=== PATIENT | female | born 1945 | race Caucasian/White ===

== ENCOUNTER → 2018-12-15 08:43 | Emergency (ER) | payer MEDICARE, OTHER ==
[2018-12-15 09:46] LABS: Hematocrit 30 % (33-41); Hemoglobin 10.2 g/dL (12.0-16.0); Mean Corpuscular HGB Conc 34 g/dL (31-36); Mean Corpuscular Hemoglobin 36 pg (27-31); Mean Corpuscular Volume 105 fL (80-97); Mean Platelet Volume 9.4 fL (7.4-10.4); Platelet Count 89 10^3/uL (150-450); Red Blood Count 2.87 10^6 /uL (3.70-4.87); Red Cell Distribution Width 16 % (10.5-15); White Blood Count 3.2 10^3/uL (3.5-10.8)
[2018-12-15 10:06] LABS: Urine Appearance Cloudy; Urine Bacteria 1+ (Absent); Urine Bilirubin Negative (Negative); Urine Blood Negative (Negative); Urine Color Amber; Urine Glucose Negative (Negative); Urine Ketones Trace (Negative); Urine Nitrite Negative (Negative); Urine Protein Negative (Negative); Urine Red Blood Cell 1+(3-5/hpf) (Absent); Urine Specific Gravity 1.015 (1.010-1.030); Urine Squamous Epithelial Cell Present (Absent); Urine Urobilinogen Negative (Negative); Urine White Blood Cell 3+(>20/hpf) (Absent)
[2018-12-15 10:07] LABS: ALT < 3 U/L (7-52); AST 14 U/L (13-39); Albumin 3.3 g/dL (3.2-5.2); Albumin/Globulin Ratio 1.4 (1-3); Alkaline Phosphatase 100 U/L (34-104); Anion Gap 6 mmol/L (2-11); BUN/Creatinine Ratio 24.1 (8-20); Blood Urea Nitrogen 19 mg/dL (6-24); CO2 Carbon Dioxide 28 mmol/L (22-32); Calcium 9.9 mg/dL (8.6-10.3); Chloride 103 mmol/L (101-111); EGFR African American 86.6 (>60); EGFR Non-African American 71.5 (>60); Globulin 2.4 g/dL (2-4); Glucose 119 mg/dL (70-100); Sodium 137 mmol/L (135-145); Total Protein 5.7 g/dL (6.4-8.9)
--- NOTE | 2018-12-15 10:10 | ED ---
Lower Extremity - HPI Summary HPI Summary: Patient is a 73-year-old female who presents emergency Department from [facility] for evaluation after fall. Caregiver states that patient fell out of bed complaining of hip and knee pain. Patient has a history of dementia and Parkinson's disease. Family present states patient is a bit more confused than usual. No associated symptoms of fever, chills, chest pain, shortness of breath , headache, abdominal pain, vomiting, diarrhea, urinary symptoms. Symptoms are moderate in severity. No current modifying factors. - History of Current Complaint Chief Complaint: EDExtremityLower Stated Complaint: FALL PER EMS Time Seen by Provider: 12/15/18 08:59 Hx Obtained From: Patient, EMS Pain Intensity: 5 - Allergies/Home Medications Allergies/Adverse Reactions: Allergies Allergy/AdvReac Type Severity Reaction Status Date / Time amoxicillin [From Augmentin] Allergy Unknown Verified 12/15/18 10:10 Reaction Details clavulanic acid Allergy Unknown Verified 12/15/18 10:10 [From Augmentin] Reaction Details morphine Allergy Hives Verified 12/15/18 10:10 Home Medications: Home Medications Lactulose 480 ML BTL*STOCK USE 20 gm PO DAILY 12/15/18 [History Confirmed ] Nystatin CREAM* [Nystatin Cream*] 1 applic TOPICAL DAILY 12/15/18 [History Confirmed 12/15/18] PMH/Surg Hx/FS Hx/Imm Hx Previously Healthy: Yes Endocrine/Hematology History: Reports: Hx Diabetes - NIDDM, Hx Thyroid Disease - Parathyroidectomy, Hx Anemia Cardiovascular History: Reports: Hx Congestive Heart Failure, Hx Hypertension Denies: Hx Pacemaker/ICD Respiratory History: Reports: Hx Pneumonia, Hx Sleep Apnea, Other Respiratory Problems/Disorders - HX OF thorocentisis Denies: Hx Asthma, Hx Chronic Obstructive Pulmonary Disease (COPD) GI History: Reports: Hx Cirrhosis - PRIMARY, Hx Diverticulosis, Hx Gall Bladder Disease - cholecystectomy, Hx Gastroesophageal Reflux Disease, Other GI Disorders - pelvic pain 3 months Denies: Hx Ulcer Comment Only: Hx Hiatal Hernia - Possibly History: Reports: Hx Kidney Stones, Hx Renal Disease - stones resolved, Other Problems/Disorders - incontinence LEAKAGE ONLY Musculoskeletal History: Reports: Hx Arthritis - OSTEO, Hx Rheumatoid Arthritis , Hx Back Problems Denies: Hx Osteoporosis, Hx Scoliosis Sensory History: Reports: Hx Cataracts - LEFT Denies: Hx Contacts or Glasses, Hx Hearing Aid Opthamlomology History: Reports: Hx Cataracts - LEFT Denies: Hx Contacts or Glasses Neurological History: Reports: Hx Dementia, Hx Headaches, Hx Nerve Disease - PARKINSONS, Other Neuro Impairments/Disorders Psychiatric History: Reports: Hx Anxiety, Hx Depression Denies: Hx Panic Disorder - Cancer History Hx Chemotherapy: No Hx Radiation Therapy: No - Surgical History Surgery Procedure, Year, and Place: Hysterectomy. UPPER LID BLEPHAROPLASTY 2010 [facility] [place]. Gall Bladder. Parathyroidectomy Hx Anesthesia Reactions: No - Immunization History Date of Tetanus Vaccine: Unk Date of Influenza Vaccine: Fall 2013 Infectious Disease History: No Infectious Disease History: Denies: Hx Clostridium Difficile, Hx Hepatitis, Hx Human Immunodeficiency Virus (HIV), Hx of Known/Suspected MRSA, Hx Shingles, Hx Tuberculosis, Traveled Outside the US in Last 30 Days - Family History Known Family History: Positive: Non-Contributory - Social History Occupation: Retired Lives: At [facility] Alcohol Use: None Hx Substance Use: No Substance Use Type: Reports: None Hx Tobacco Use: No Smoking Status (MU): Never Smoked Tobacco Review of Systems Negative: Fever, Chills Eyes: Negative ENT: Negative Cardiovascular: Negative Negative: Chest Pain Respiratory: Negative Negative: Shortness Of Breath, Cough Gastrointestinal: Negative Negative: Abdominal Pain, Vomiting, Diarrhea Genitourinary: Negative Negative: dysuria Positive: Other - left hip and bilateral knee pain Skin: Negative Neurological: Other - slight increased confusion. Negative: Headache, Weakness, Paresthesia, Numbness All Other Systems Reviewed And Are Negative: Yes Physical Exam Triage Information Reviewed: Yes Vital Signs On Initial Exam: Initial Vitals Temp Pulse Resp BP Pulse Ox 98.2 F 81 18 140/60 97 12/15/18 08:53 12/15/18 08:53 12/15/18 08:53 12/15/18 08:53 12/15/18 08:53 Vital Signs Reviewed: Yes Appearance: Positive: Well-Appearing - Pt. sitting up in bed in NAD. Confused at times. Skin: Positive: Warm, Dry Head/Face: Positive: Normal Head/Face Inspection Eyes: Positive: Normal, EOMI Neck: Positive: Supple, Nontender Respiratory/Lung Sounds: Positive: Clear to Auscultation, Breath Sounds Present Cardiovascular: Positive: Normal, RRR Abdomen Description: Positive: Nontender, Soft Musculoskeletal: Positive: Other - Pain on palpation to bilateral knees. No pain with pelvic rock. No wounds or signs or trauam on exam. Mild pain on palpation to proximal right humerus. Neurological: Positive: Normal, CN Intact II-III Psychiatric: Positive: Affect/Mood Appropriate Diagnostics - Vital Signs Vital Signs Temp Pulse Resp BP Pulse Ox 12/15/18 08:53 98.2 F 81 18 140/60 97 - Laboratory Lab Results: Lab Results 12/15/18 12/15/18 12/15/18 Range/Units 09:26 09:37 09:37 WBC 3.2 L (3.5-10.8) 10^3/uL RBC 2.87 L (3.70-4.87) 10^6 /uL Hgb 10.2 L (12.0-16.0) g/dL Hct 30 L (33-41) % MCV 105 H (80-97) fL MCH 36 H (27-31) pg MCHC 34 (31-36) g/dL RDW 16 H (10.5-15) % Plt Count 89 L (150-450) 10^3/uL MPV 9.4 (7.4-10.4) fL Neut % (Auto) Pending Lymph % (Auto) Pending [place] % (Auto) Pending Eos % (Auto) Pending Baso % (Auto) Pending Absolute Neuts (auto) Pending Absolute Lymphs (auto) Pending Absolute Monos (auto) Pending Absolute Eos (auto) Pending Absolute Basos (auto) Pending Absolute Nucleated RBC Pending Nucleated RBC % Pending Sodium 137 (135-145) mmol/L Potassium 4.0 (3.5-5.0) mmol/L Chloride 103 (101-111) mmol/L Carbon Dioxide 28 (22-32) mmol/L Anion Gap 6 (2-11) mmol/L BUN 19 (6-24) mg/dL Creatinine 0.79 (0.51-0.95) mg/dL Est GFR ( Amer) 86.6 (>60) Est GFR (Non-Af Amer) 71.5 (>60) BUN/Creatinine Ratio 24.1 H (8-20) Glucose 119 H (70-100) mg/dL Calcium 9.9 (8.6-10.3) mg/dL Total Bilirubin 2.10 H (0.2-1.0) mg/dL AST 14 (13-39) U/L ALT < 3 L (7-52) U/L Alkaline Phosphatase 100 (34-104) U/L Total Protein 5.7 L (6.4-8.9) g/dL Albumin 3.3 (3.2-5.2) g/dL Globulin 2.4 (2-4) g/dL Albumin/Globulin Ratio 1.4 (1-3) Urine Color [place] Urine Appearance Cloudy Urine pH 6.0 (5-9) Ur Specific [place] 1.015 (1.010-1.030) Urine Protein Negative (Negative) Urine Ketones Trace A (Negative) Urine Blood Negative (Negative) Urine Nitrate Negative (Negative) Urine Bilirubin Negative (Negative) Urine Urobilinogen Negative (Negative) Ur Leukocyte Esterase 3+ A (Negative) Urine WBC (Auto) 3+(>20/hpf) A (Absent) Urine RBC (Auto) 1+(3-5/hpf) A (Absent) Ur Squamous Epith Cells Present A (Absent) Urine Bacteria 1+ A (Absent) Urine Glucose Negative (Negative) Result Diagrams: 12/15/18 09:37 12/15/18 09:37 Lab Statement: Any lab studies that have been ordered have been reviewed, and results considered in the medical decision making process. Lower Extremity Course/Dx - Course Course Of Treatment: Pt. presenting for evaluation after falling from bed. VS stable. Afebrile. Confused at baseline. Imaging is negative for acute findings per radiology. Labs show chronic pancytopenia. ECG nonacute. U/A suggestive of UTI. On re-exam pt.'s family is now present. Results discussed. Pt. [facility]. WIll start on cipro based on prior cultures. To f.u with PCP. To return to ER if sxs change or worsen. Family understands and agrees with plan. - Diagnoses Differential Diagnosis/HQI/PQRI: Positive: Dislocation, Fracture (Closed), Sprain, Strain Provider Diagnoses: Fall, UTI (urinary tract infection), Knee contusion Discharge - Sign-Out/Discharge Documenting (check all that apply): Patient Departure Patient Received Moderate/Deep Sedation with Procedure: No - Discharge Plan Condition: Good Disposition: HOME Prescriptions: Ciprofloxacin TAB* [Cipro 500 MG TAB*] 500 mg PO BID #14 tab Patient Education Materials: Urinary Tract Infection in Women (ED), Fall Prevention (ED) Referrals: Jared Cisneros MD [Primary Care Provider] - Additional Instructions: Schedule follow up with PCP in 2-3 days Take antibiotic as directed Return to ER if symptoms change or worsen - Billing Disposition and Condition Condition: GOOD Disposition: Home
[2018-12-15 10:14] LABS: ABS Basophils 0 10^3/ul (0-0.2); ABS Eosinophils 0.1 10^3/ul (0-0.6); ABS Lymphocytes 0.5 10^3/ul (1.0-4.8); ABS Monocytes 0.3 10^3/ul (0-0.8); ABS Neutrophils 2.3 10^3/ul (1.5-7.7); ABS Nucleated RBC 0 10^3/ul; Eosinophil % 3.8 %; Lymphocyte % 14.6 %; Nucleated Red Blood Cells % 0
[2018-12-15 12:17] VITALS: BP 134/63
== END | disposition home or self-care (01) ==
LOC: ED 08:43
DX: S80.00XA Contusion of unspecified knee, initial encounter (principal); M25.562 Pain in left knee; M25.561 Pain in right knee; N39.0 Urinary tract infection, site not specified; W19.XXXA Unspecified fall, initial encounter; Y92.9 Unspecified place or not applicable; E11.9 Type 2 diabetes mellitus without complications; I10 Essential (primary) hypertension
CPT/HCPCS: 36415; 70450; 71045; 80053; 81003; 81015; 85025; 87086; 93005; 99283

== ENCOUNTER 2019-01-23 15:30 | Emergency (ER) | payer MEDICARE, OTHER ==
[2019-01-23] MEDS ORDERED: Lidocaine PATCH 5%* 1 PATCH TRANSDERM ONE (15:47)
[2019-01-23] MEDS ORDERED: HYDROcodone/ACETAMIN 5-325 MG* 1 TAB PO ONE (15:47)
[2019-01-23] MEDS ORDERED: Ketorolac INJ* 60 MG/2 ML VIAL IM ONE (15:47)
[2019-01-23] MEDS ORDERED: Albuterol/Ipratropium NEB.SOL* Albuterol 2.5 MG/Ipratropium 0.5 MG 3 ML INH ONE (15:48)
--- NOTE | 2019-01-23 15:51 | ED ---
Back Pain - HPI Summary HPI Summary: This patient is a 73 year old female brought in by ambulance to [facility] with a chief complaint of right shoulder and back pain since 2 hours ago. Patient states that she has had right sided shoulder pain and back pain for the past few weeks. Today, patient stumbled out of bed and suffered a fall onto her right side, causing more pain. Patient states that pain is located in her midback, where her ribs are. The pain is rated 8/10 in severity. Symptoms aggravated by movement. Symptoms alleviated by nothing. Patient additionally reports SOB. - History of Current Complaint Stated Complaint: FALL PER EMS Time Seen by Provider: 01/23/19 15:39 Hx Obtained From: Patient Onset/Duration: Lasting Hours, Still Present Onset/Duration: Still Present Timing: Constant Back Pain Location: Is Discrete @ - mid back, near ribs Severity Currently: Severe Pain Intensity: 8 Pain Scale Used: 0-10 Numeric Aggravating Symptom(s): Movement Alleviating Symptom(s): Nothing Associated Signs And Symptoms: Positive: Other - shoulder pain, SOB. Negative: Fever - Allergies/Home Medications Allergies/Adverse Reactions: Allergies Allergy/AdvReac Type Severity Reaction Status Date / Time amoxicillin [From Augmentin] Allergy Unknown Verified 12/15/18 10:10 Reaction Details clavulanic acid Allergy Unknown Verified 12/15/18 10:10 [From Augmentin] Reaction Details morphine Allergy Hives Verified 12/15/18 10:10 PMH/Surg Hx/FS Hx/Imm Hx Previously Healthy: No Endocrine/Hematology History: Reports: Hx Diabetes - NIDDM, Hx Thyroid Disease - Parathyroidectomy, Hx Anemia Cardiovascular History: Reports: Hx Congestive Heart Failure, Hx Hypertension Denies: Hx Pacemaker/ICD Respiratory History: Reports: Hx Pneumonia, Hx Sleep Apnea, Other Respiratory Problems/Disorders - HX OF thorocentisis Denies: Hx Asthma, Hx Chronic Obstructive Pulmonary Disease (COPD) GI History: Reports: Hx Cirrhosis - PRIMARY, Hx Diverticulosis, Hx Gall Bladder Disease - cholecystectomy, Hx Gastroesophageal Reflux Disease, Other GI Disorders - pelvic pain 3 months Denies: Hx Ulcer Comment Only: Hx Hiatal Hernia - Possibly History: Reports: Hx Kidney Stones, Hx Renal Disease - stones resolved, Other Problems/Disorders - incontinence LEAKAGE ONLY Musculoskeletal History: Reports: Hx Arthritis - OSTEO, Hx Rheumatoid Arthritis , Hx Back Problems Denies: Hx Osteoporosis, Hx Scoliosis Sensory History: Reports: Hx Cataracts - LEFT Denies: Hx Contacts or Glasses, Hx Hearing Aid Opthamlomology History: Reports: Hx Cataracts - LEFT Denies: Hx Contacts or Glasses Neurological History: Reports: Hx Dementia, Hx Headaches, Hx Nerve Disease - PARKINSONS, Other Neuro Impairments/Disorders Psychiatric History: Reports: Hx Anxiety, Hx Depression Denies: Hx Panic Disorder - Cancer History Hx Chemotherapy: No Hx Radiation Therapy: No - Surgical History Surgery Procedure, Year, and Place: Hysterectomy. UPPER LID BLEPHAROPLASTY [address] [facility] [place]. Gall Bladder. Parathyroidectomy Hx Anesthesia Reactions: No - Immunization History Date of Tetanus Vaccine: Unk Date of Influenza Vaccine: Fall 2013 Infectious Disease History: Denies: Hx Clostridium Difficile, Hx Hepatitis, Hx Human Immunodeficiency Virus (HIV), Hx of Known/Suspected MRSA, Hx Shingles, Hx Tuberculosis - Family History Known Family History: Positive: Non-Contributory - Social History Alcohol Use: None Hx Substance Use: No Substance Use Type: Reports: None Hx Tobacco Use: No Smoking Status (MU): Never Smoked Tobacco Review of Systems Negative: Fever Positive: Shortness Of Breath Positive: Other - shoulder pain, back pain All Other Systems Reviewed And Are Negative: Yes Physical Exam - Summary Physical Exam Summary: Appearance: well appearing, no pain distress Skin: warm, dry, reflects adequate perfusion Head/face: normal Eyes: EOMI, MATT ENT: mucous membranes moist Neck: supple, non-tender Respiratory: Mild expiratory wheeze, Minor coarseness in bases Cardiovascular: RRR, pulses symmetrical Abdomen: Protuberant, distended abd Bowel Sounds: present Musculoskeletal: Left thoracic and rib pain, 2+ bilateral lower extremity edema Neuro: normal, sensory motor intact, A&Ox3 Triage Information Reviewed: Yes Vital Signs Reviewed: Yes Diagnostics - Laboratory Lab Statement: Any lab studies that have been ordered have been reviewed, and results considered in the medical decision making process. - Radiology CXR Radiology Interpretation Completed By: Radiologist Summary of Radiographic Findings: CXR reveals, per radiologist, IMPRESSION: LINEAR ATELECTASIS OF THE LEFT LUNG BASE, WITH A SMALL LEFT PLEURAL EFFUSION. ED physician has reviewed this radiology report. - CT CT T-Spine CT Interpretation Completed By: Radiologist Summary of CT Findings: CT T-Spine reveals, per radiologist, IMPRESSION: OSTEOPENIA. DEGENERATIVE DISC DISEASE. ED physician has reviewed this radiology report. Re-Evaluation - Re-Evaluation First Eval Re-Evaluation Time: 17:29 Change: Improved Comment: Patient states pain is improving. Back Pain Course/Dx - Course Course Of Treatment: Patient with chronic back pain from falls in the past presents with exacerbation after fall. No injury to the head. Alert and oriented despite her dementia. She is DNR/DNR and comfort care measures. She was treated with Lidoderm patch, Toradol and pain pill as well as a phenyl patch placed before discharge. X-rays are negative. Follow up with primary care physician. Suggestion for patient to be made palliative or hospice was made. - Diagnoses Differential Diagnosis/HQI/PQRI: Positive: Fracture, Strain, Sprain Provider Diagnoses: Fall, Thoracic back pain Discharge - Sign-Out/Discharge Documenting (check all that apply): Patient Departure Patient Received Moderate/Deep Sedation with Procedure: No - Discharge Plan Condition: Improved Disposition: [facility] Prescriptions: Lidocaine PATCH 5%* [Lidoderm 5% Patch*] 1 patch TRANSDERM DAILY #1 packet Patient Education Materials: Back Pain (ED), Fall Prevention (ED) Referrals: Jared Cisneros MD [Primary Care Provider] - Additional Instructions: Follow-up with the group home physician on Friday. Return with difficulty breathing, uncontrolled pain, worse or other concerns. Consider palliative care or hospice care. - Billing Disposition and Condition Condition: IMPROVED Disposition: Care Home Facility - Attestation Statements Document Initiated by Timmy: Yes Documenting Scribe: Gianni Hendrickson Provider For Whom Timmy is Documenting (Include Credential): Zechariah Sherman MD Scribe Attestation: Gianni Jacob scribed for Zechariah Sherman MD on 01/23/19 at 1837. Scribe Documentation Reviewed: Yes Provider Attestation: The documentation as recorded by the Gianni malone accurately reflects the service I personally performed and the decisions made by , Zechariah Sherman MD Status of Scribe Document: Viewed
[2019-01-23] MEDS ORDERED: fentaNYL PATCH 12 MCG/HR TRANSDERM ONE (17:40)
[2019-01-23 18:09] VITALS: BP 140/78
[2019-01-23] MEDS ORDERED: Lidocaine Patch REMOVE* 1 NOTE MISC SCH (21:00)
== END 2019-01-23 21:05 ==
LOC: ED 15:30
DX: M54.6 Pain in thoracic spine (principal); M85.88 Other specified disorders of bone density and structure, other site; M51.34 Other intervertebral disc degeneration, thoracic region; J98.11 Atelectasis; J90 Pleural effusion, not elsewhere classified; I50.9 Heart failure, unspecified; I11.0 Hypertensive heart disease with heart failure; K74.60 Unspecified cirrhosis of liver; E11.9 Type 2 diabetes mellitus without complications; D64.9 Anemia, unspecified; K21.9 Gastro-esophageal reflux disease without esophagitis; M19.90 Unspecified osteoarthritis, unspecified site; M06.9 Rheumatoid arthritis, unspecified; G20 Parkinson's disease; Z88.3 Allergy status to other anti-infective agents; Z88.5 Allergy status to narcotic agent
CPT/HCPCS: 71046; 72070; 96372; 99284; A9270-GY; J1885

== ENCOUNTER 2019-01-25 15:13 | Inpatient (IN) | payer MEDICARE, OTHER ==
--- NOTE | 2019-01-25 15:53 | ED ---
Shortness of Breath - HPI Summary HPI Summary: Pt is a 73 y/o F presenting to the ED with a chief complaint of shortness of breath onset this morning. The pts daughter was sitting with her keeping her company when she noticed her temperature increase more than usual, with associated sudden weakness and SOB. The pts daughter states she is not coughing d/t pain when coughing. She states the pt does not usually breathe with her mouth open, and that the pt fell on 01/23, which is causing back pain. The pt notes some burning with urination d/t recent UTI dx. In summary, the pt reports SOB with wheezes, fever, weakness, burning with urination, edema, and back pain. Pt denies any chills, erythema of eyes, sore throat, CP, cough, abdominal pain, N/V, dysuria, hematuria, rash, or dizziness. She has hx of dementia, CHF, chronic bronchitis, Parkinsons, and cirrhosis. - History of Current Complaint Chief Complaint: EDShortnessOfBreath Time Seen by Provider: 01/25/19 15:22 Hx Obtained From: Patient, Family/Cloth Sponger Hx From Patient Unobtainable Due To: Dementia Onset/Duration: Sudden Onset, Lasting Hours, Still Present Timing: Constant Current Severity: Moderate Dyspnea At: Rest Aggrevating Factors: Nothing Alleviating Factors: Nothing Associated Signs & Symptoms: Wheezing, Fever, Edema - Allergy/Home Medications Allergies/Adverse Reactions: Allergies Allergy/AdvReac Type Severity Reaction Status Date / Time amoxicillin [From Augmentin] Allergy Unknown Verified 12/15/18 10:10 Reaction Details clavulanic acid Allergy Unknown Verified 12/15/18 10:10 [From Augmentin] Reaction Details morphine Allergy Hives Verified 12/15/18 10:10 PMH/Surg Hx/FS Hx/Imm Hx Previously Healthy: No Endocrine/Hematology History: Reports: Hx Diabetes - NIDDM, Hx Thyroid Disease - Parathyroidectomy, Hx Anemia Cardiovascular History: Reports: Hx Congestive Heart Failure, Hx Hypertension Denies: Hx Pacemaker/ICD Respiratory History: Reports: Hx Chronic Bronchitis, Hx Pneumonia, Hx Sleep Apnea, Other Respiratory Problems/Disorders - HX OF thorocentisis Denies: Hx Asthma, Hx Chronic Obstructive Pulmonary Disease (COPD) GI History: Reports: Hx Cirrhosis - PRIMARY, Hx Diverticulosis, Hx Gall Bladder Disease - cholecystectomy, Hx Gastroesophageal Reflux Disease, Other GI Disorders - pelvic pain 3 months Denies: Hx Ulcer Comment Only: Hx Hiatal Hernia - Possibly History: Reports: Hx Kidney Stones, Hx Renal Disease - stones resolved, Other Problems/Disorders - incontinence LEAKAGE ONLY Musculoskeletal History: Reports: Hx Arthritis - OSTEO, Hx Rheumatoid Arthritis , Hx Back Problems Denies: Hx Osteoporosis, Hx Scoliosis Sensory History: Reports: Hx Cataracts - LEFT Denies: Hx Contacts or Glasses, Hx Hearing Aid Opthamlomology History: Reports: Hx Cataracts - LEFT Denies: Hx Contacts or Glasses Neurological History: Reports: Hx Dementia, Hx Headaches, Hx Nerve Disease - PARKINSONS, Other Neuro Impairments/Disorders Psychiatric History: Reports: Hx Anxiety, Hx Depression Denies: Hx Panic Disorder - Cancer History Hx Chemotherapy: No Hx Radiation Therapy: No - Surgical History Surgery Procedure, Year, and Place: Hysterectomy. [place]OP[place] [facility] [place] Bladder. Parathyroidectomy Hx Anesthesia Reactions: No - Immunization History Date of Tetanus Vaccine: Unk Date of Influenza Vaccine: Fall 2013 Infectious Disease History: No Infectious Disease History: Denies: Hx Clostridium Difficile, Hx Hepatitis, Hx Human Immunodeficiency Virus (HIV), Hx of Known/Suspected MRSA, Hx Shingles, Hx Tuberculosis, Traveled Outside the [place] in Last 30 Days - Family History Known Family History: Negative: Renal Disease - Social History Alcohol Use: None Hx Substance Use: No Substance Use Type: Reports: None Hx Tobacco Use: No Smoking Status (MU): Never Smoked Tobacco Review of Systems Positive: Fever. Negative: Chills Negative: Erythema Negative: Sore Throat Negative: Chest Pain Positive: Shortness Of Breath - w/ wheezes. Negative: Cough Negative: Abdominal Pain, Vomiting, Nausea Positive: burning. Negative: dysuria, hematuria Positive: Myalgia, Edema Negative: Rash Neurological: Negative - dizziness Positive: Weakness All Other Systems Reviewed And Are Negative: Yes Physical Exam - Summary Physical Exam Summary: Constitutional: Well-developed, Well-nourished, somnolent. (-) Distressed Skin: Warm, Dry HENT: Normocephalic; Atraumatic Eyes: Conjunctiva normal Neck: Musculoskeletal ROM normal neck. (-) JVD, (-) Stridor, (-) Tracheal deviation Cardio: Rhythm regular, rate normal, Heart sounds normal; Intact distal pulses; The pedal pulses are 2+ and symmetric. Radial pulses are 2+ and symmetric. (-) Murmur Pulmonary/Chest wall: Effort normal. (-) Respiratory distress, (+) Crackles, (+ ) Wheezes, (-) Rales Abd: Soft, (-) tenderness, (-) Distension, (-) Guarding, (-) Rebound Musculoskeletal: (-) Edema Lymph: (-) Cervical adenopathy Neuro: Alert, Oriented x3 Psych: Mood and affect Normal Triage Information Reviewed: Yes Vital Signs On Initial Exam: Initial Vitals Temp Pulse Resp BP Pulse Ox 98.5 F 105 25 140/83 98 01/25/19 15:17 01/25/19 15:17 01/25/19 15:17 01/25/19 15:17 01/25/19 15:17 Vital Signs Reviewed: Yes Diagnostics - Vital Signs Vital Signs Temp Pulse Resp BP Pulse Ox 01/25/19 15:17 98.5 F 105 25 140/83 98 - Laboratory Result Diagrams: 01/25/19 16:16 01/25/19 16:16 Lab Statement: Any lab studies that have been ordered have been reviewed, and results considered in the medical decision making process. - Radiology CXR Radiology Interpretation Completed By: Radiologist Summary of Radiographic Findings: 1. LEFT BASILAR ATELECTASIS VERSUS CONSOLIDATION WITH A SMALL LEFT PLEURAL EFFUSION. 2. PULMONARY VASCULAR CONGESTION. ED physician has reviewed this report. - EKG 1531 Cardiac Rate: Tachycardia - 107bpm - sinus or ectopic atrial ST Segment: Normal Ectopy: None Summary of EKG Findings: EKG at 1531 shows sinus or ectopic atrial tachycardia at 107bpm, borderline T-wave abnormalities, and no STEMI. Re-Evaluation - Re-Evaluation 1st re-eval Re-Evaluation Time: 17:21 Change: Unchanged Comment: Pt's family reports she uses oxygen PRN at home. Course/Dx - Course Course Of Treatment: Pt is a 73 y/o F presenting to the ED with a chief complaint of shortness of breath onset this morning. The pt reports SOB with wheezes, fever, weakness, burning with urination, edema, and back pain d/t recent fall. Pt denies any chills, erythema of eyes, sore throat, CP, cough, abdominal pain, N/V, dysuria, hematuria, rash, or dizziness. She has hx of dementia, CHF, chronic bronchitis, Parkinsons, and cirrhosis. Upon exam, the pt has wheezes and crackles in her bilateral lungs, and appears somnolent at bedside. EKG at 1531 shows sinus or ectopic atrial tachycardia at 107bpm, borderline T-wave abnormalities, and no STEMI. CXR shows: 1. LEFT BASILAR ATELECTASIS VERSUS CONSOLIDATION WITH A SMALL LEFT PLEURAL EFFUSION. 2. PULMONARY VASCULAR CONGESTION. Pt's INR is 1.44, and her APTT is 36.6. She also has a RBC of 2.56, Hgb of 8.9, Hcct of 27, MCV of 104, MCH of 35, and a plt count of 80. Her first troponin is 0.06, and her BNP is 249. Pt appears to have L-sided infiltrate with pleural effusion. D/t her hx of CHF and chronic bronchitis, I suspect her tachycardia and tachypnea is related to PNA. I do not believe the pt is septic, her WBC and lactic acid are nml. It would be dangerous to administer IV fluids in large volume bolus to her. She appears somnolent, possibly from her Fentanyl patch. The pt [place] [facility] [place] dx including PNA and medication adverse effect. I spoke with Dr. Sin at 1725 about the pt's condition who will be accepting the [place] [facility] [place] - Diagnoses Provider Diagnoses: PNA (pneumonia), Medication adverse effect Discharge - Sign-Out/Discharge Documenting (check all that apply): Patient Departure - Discharge Plan Condition: Stable Disposition: ADMITTED TO [facility] Referrals: Arthur Murphy MD [Primary Care Provider] - - Attestation Statements Document Initiated by Scribe: Yes Documenting Scribe: Jyoti Stephen Provider For Whom Timmy is Documenting (Include Credential): Yakov Bello MD. Scribe Attestation: IJyoti, scribed for Yakov Bello MD. on 01/25/19 at 1730. Status of Scribe Document: Ready Consult Consult: 1725 - I spoke with Dr. Sin who will be accepting the pt [place] [facility] [place]
[2019-01-25 16:35] LABS: Activated Partial Thrombo Time 36.6 seconds (26.0-36.3); INR 1.44 (0.82-1.09)
[2019-01-25 16:38] LABS: ABS Basophils 0 10^3/ul (0-0.2); ABS Eosinophils 0.1 10^3/ul (0-0.6); ABS Lymphocytes 0.3 10^3/ul (1.0-4.8); ABS Monocytes 0.7 10^3/ul (0-0.8); ABS Neutrophils 4.5 10^3/ul (1.5-7.7); ABS Nucleated RBC 0 10^3/ul; Eosinophil % 1.4 %; Hematocrit 27 % (33-41); Hemoglobin 8.9 g/dL (12.0-16.0); Lymphocyte % 5.8 %; Mean Corpuscular HGB Conc 34 g/dL (31-36); Mean Corpuscular Hemoglobin 35 pg (27-31); Mean Corpuscular Volume 104 fL (80-97); Mean Platelet Volume 10.2 fL (7.4-10.4); Nucleated Red Blood Cells % 0; Platelet Count 80 10^3/uL (150-450); Red Blood Count 2.56 10^6 /uL (3.70-4.87); Red Cell Distribution Width 16 % (10.5-15); White Blood Count 5.6 10^3/uL (3.5-10.8)
[2019-01-25 16:55] LABS: Troponin I 0.06 ng/mL (<0.04)
[2019-01-25 16:56] LABS: ALT 3 U/L (7-52); AST 20 U/L (13-39); Albumin 3.3 g/dL (3.2-5.2); Albumin/Globulin Ratio 1.3 (1-3); Alkaline Phosphatase 84 U/L (34-104); Anion Gap 5 mmol/L (2-11); BUN/Creatinine Ratio 26.4 (8-20); Blood Urea Nitrogen 23 mg/dL (6-24); CO2 Carbon Dioxide 27 mmol/L (22-32); Calcium 9.7 mg/dL (8.6-10.3); Chloride 106 mmol/L (101-111); EGFR African American 77.4 (>60); Globulin 2.6 g/dL (2-4); Glucose 133 mg/dL (70-100); Potassium 4.2 mmol/L (3.5-5.0); Sodium 138 mmol/L (135-145); Total Protein 5.9 g/dL (6.4-8.9)
[2019-01-25] MEDS ORDERED: Azithromycin 500 mg/250 ml NS 500 MG/250 ML BAG IVPB ONE (17:21)
[2019-01-25] MEDS ORDERED: cefTRIAXone(*) 1 GM in NS 0.9% 50 ML* 50 ML IVPB ONE (17:21)
[2019-01-25] MEDS ORDERED: Furosemide IV* 10 MG/ML VIAL (40 MG) IV SLOW PU ONE (17:26)
[2019-01-25 17:37] LABS: Urine Appearance Clear; Urine Bilirubin Negative (Negative); Urine Blood Negative (Negative); Urine Color Yellow; Urine Glucose Negative (Negative); Urine Ketones Negative (Negative); Urine Nitrite Negative (Negative); Urine Protein Negative (Negative); Urine Urobilinogen Negative (Negative)
[2019-01-25] MEDS ORDERED: Albuterol/Ipratropium NEB.SOL* Albuterol 2.5 MG/Ipratropium 0.5 MG 3 ML INH PRN (18:13)
[2019-01-25] MEDS ORDERED: Albuterol 2.5 MG/3 ML NEB.SOL* (0.083%) INH PRN (18:13)
[2019-01-25] MEDS ORDERED: Al Hydrox/Mg Hydrox/Simet LIQ* 30 ML UDC PO PRN (18:13)
[2019-01-25] MEDS ORDERED: Glycerin ADULT SUPP PR PRN (18:19)
[2019-01-25] MEDS ORDERED: Albuterol HFA INHALER* 8 gm MDI INH PRN (18:19)
[2019-01-25] MEDS ORDERED: Magnesium Hydroxide LIQ* 30 ML UDC PO PRN (18:19)
[2019-01-25] MEDS ORDERED: Calcium Carbonate CHEW TAB* 500 MG (TUMS) PO PRN (18:19)
[2019-01-25] MEDS ORDERED: Pantoprazole TAB * 40 MG TAB PO PRN (18:19)
[2019-01-25 18:20] LABS: % Iron Saturation 13 % (15-55); Iron 43 ug/dL (50-212); Total Iron Binding Capacity 344 mcg/dL (250-450); Transferrin 246 mg/dL (203-362)
[2019-01-25 18:42] LABS: Ferritin 106.2 ng/mL (11-307)
[2019-01-25 18:44] LABS: Influenza A Molecular NEGATIVE (Negative); Influenza B Molecular NEGATIVE (Negative)
[2019-01-25 18:45] LABS: Folate 3.73 ng/mL (>3.99)
[2019-01-25 20:07] LABS: Troponin I 0.05 ng/mL (<0.04)
[2019-01-25] MEDS: Acetaminophen TAB* 325 MG PO SCH (20:07)
[2019-01-25] MEDS: Carbidopa/Levodop 25/100 MG TAB(*) PO SCH (20:08)
[2019-01-25] MEDS: Heparin VIAL(*) 5000 UNITS/ML VIAL (FIVE THOUSAND) SUBCUT SCH (20:23)
[2019-01-25] MEDS: DULoxetine DR CAP* 20 MG CAP.DR PO SCH (21:06)
[2019-01-25] MEDS: Latanoprost 0.005%* 2.5 ml BTL BOTH EYES SCH (21:06)
[2019-01-25] MEDS: Lidocaine PATCH 5%* 1 PATCH TRANSDERM SCH (21:09)
--- NOTE | 2019-01-25 21:20 | HP ---
CC: Dr. Murphy * HISTORY AND PHYSICAL: DATE OF ADMISSION: 01/25/19 PRIMARY CARE PROVIDER: Dr. Murphy at [facility]. ATTENDING PHYSICIAN: Dr. Yulia Sin * (dictated by Ivette Arevalo NP). CHIEF COMPLAINT: 1. Shortness of breath. 2. Increased temperature. 3. Weakness. HISTORY OF PRESENT ILLNESS: Mrs. Brink is a 73-year-old female with a past medical history significant for dementia, CHF, chronic bronchitis, Parkinson's, cirrhosis, diabetes, hypothyroid, anemia, asthma, hypertension, hyperlipidemia who presented to the emergency department today on 01/25/19 with her daughter due to complaints of sudden shortness of breath, increase in temperature, weakness. While in the emergency department, patient also complained of wheezing, fever, burning with urination, edema, back pain. It should be mentioned the patient has had 2 other emergency department visits since November, both of which are for falls. While in the emergency department, patient had a chest x-ray, which revealed left basilar atelectasis versus consolidation with a small left pleural effusion and peripheral vascular congestion. She also had labs, which revealed macrocytic anemia and thrombocytopenia. She also had an elevated BNP at 249. Given patient's presentation and concern for fluid volume overload and possible community acquired pneumonia, the hospitalists were asked to evaluate for admission. PAST MEDICAL HISTORY: 1. Dementia. 2. CHF. 3. Chronic bronchitis. 4. Parkinson's. 5. Cirrhosis. 6. Diabetes. 7. Hypothyroid. 8. Anemia (iron deficiency). 9. Pancytopenia. 10. Depression. 11. GERD. 12. Fibromyalgia. PAST SURGICAL HISTORY: 1. Parathyroidectomy. HOME MEDICATIONS: 1. Two liters nasal cannula at baseline. 2. Zinc oxide 10% transdermal b.i.d. p.r.n. 3. Lidocaine 5% 1 patch transdermal daily. 4. Latanoprost 1 to both eyes at bedtime. 5. Lactulose 30 mg p.o. b.i.d. 6. DuoNeb 1 inhalation q.4 hours p.r.n. 7. Glycerin suppository 1 suppository NH daily p.r.n. 8. Glucagon emergency kit 1 mg injection once p.r.n. 9. Freeze It Relief Gel 113.4 g topical q.6 hours p.r.n. 10. Furosemide 80 mg p.o. q.a.m. 11. Enema, Weyxn-Yt-Vrm 133 mL NH daily p.r.n. 12. Cymbalta 40 mg p.o. at bedtime. 13. Carbidopa/levodopa 25 mg/100 mg 1.5 tabs p.o. 4 times daily. 14. Tums 500 mg p.o. q.4 hours p.r.n. 15. Tylenol Arthritis Pain 650 mg p.o. t.i.d. 16. Albuterol HFA 2 puff inhalation q.4 hours p.r.n. 17. Tramadol 50 mg p.o. q.6 hours p.r.n. 18. Spironolactone 25 mg p.o. daily. 19. Mylicon 80 mg p.o. q.4 hours p.r.n. 20. Saline nasal drops 1 both nares b.i.d. 21. Artificial Tear eye drops 1 drop both eyes t.i.d. 22. Omeprazole 20 mg p.o. daily p.r.n. 23. Mirabegron 50 mg p.o. daily. 24. Milk of Magnesia 30 mL p.o. q.72 hours p.r.n. 25. Magnesium oxide 40 mg p.o. q.a.m. 26. Losartan 50 mg p.o. daily. ALLERGIES: AMOXICILLIN, CLAVULANIC ACID, MORPHINE. FAMILY HISTORY: Patient's mother had coronary artery disease and CHF. Father has history of bladder cancer. Brother had liver cancer. SOCIAL HISTORY: Patient denies smoking. Patient denies alcohol use. Patient currently lives at [facility]. Patient is a DNR. Patient's surrogate decision maker is Glory Jerez, her daughter, at [phone]. REVIEW OF SYSTEMS: Constitutional: Patient reports elevated temperature as she normally runs 95 and is currently 98 to 99. No anorexia. No weight loss. Cardiac: No chest pain. Reports edema. Respiratory: No cough. No hemoptysis. She reports shortness of breath with wheeze. GI: No nausea, vomiting. No diarrhea. No abdominal pain. : No gross hematuria. Patient reports mild burning with urination. Neuro: No focal weakness or sensory loss. Reports generalized weakness. Eyes: No visual complaints. ENT: No sore throat. No nasal congestion. Musculoskeletal: Patient reports back pain and shoulder pain due to fall. Skin: No rashes or lesions. Psych: No psychosis or anxiety. PHYSICAL EXAMINATION GENERAL: Ms. Brink is a 73-year-old female who is mildly obese, lying on the ED stretcher. She appears in no acute distress. She appears stated age. VITAL SIGNS: Temp 99.2 rectally, HR 105, RR 23, O2 saturation 98% on 2 L, BP 129/76. HEENT: EOMs intact. PERRLA. Oral mucosa is moist without lesions. Posterior pharynx is clear. NECK: Full range of motion. No lymphadenopathy. RESPIRATORY: Symmetrical chest expansion. No accessory muscle use. The patient has crackles in the lower and mid lobes. No wheeze heard. CV: Regular rate and rhythm. S1, S2 present. Systolic murmur noted. No rubs or gallops. EXTREMITIES: Skin is warm and smooth bilaterally. Patient has +1 edema bilaterally. No clubbing or cyanosis. Pedal pulses are 2+ bilaterally. MUSCULOSKELETAL: Full range of motion. No pain or deformities. ABDOMEN: Soft, nontender to palpation. Bowel sounds are normoactive throughout. NEURO: Awake, alert, and oriented x4. Cranial nerves II through XII are grossly intact. Moves all extremities. Muscle strength is 5/5 in the upper and lower extremities. SKIN: Grossly intact. DIAGNOSTIC STUDIES/LAB DATA: WBC 5.6, hemoglobin 8.9, hematocrit 27, MCV 105, MCH 35, platelets 80. Sodium 138, potassium 4.2, chloride 106, carbon dioxide 27, BUN 23, creatinine 0.87, glucose 133, lactic 1.2, total bilirubin 2.40. Troponin 0.06, BNP 249. EKG: Impression: Sinus rhythm, no ST changes. Chest x-ray: Impression: Left basilar atelectasis versus consolidation versus mild left pleural effusion. No pulmonary vascular congestion. ASSESSMENT AND PLAN: Ms. Brink is a 73-year-old female with a past medical history significant for dementia, congestive heart failure, chronic bronchitis, Parkinson's, cirrhosis, diabetes, hypothyroid, anemia, pancytopenia who presented to the emergency department today with weakness, elevated temperature , and shortness of breath and was found to have a possible congestive heart failure exacerbation and possibly pneumonia. Patient will be admitted OBV. 1. Shortness of breath: As mentioned above, patient's chest x-ray shows consolidation versus atelectasis and pulmonary congestion. Therefore, patient will be treated for both congestive heart failure exacerbation given her edema and elevated BNP and she will be covered for community-acquired pneumonia with azithromycin and ceftriaxone given reported elevated temperature and shortness of breath. 2. Congestive heart failure exacerbation: This is an [id number] congestive heart failure exacerbation. I have ordered an echocardiogram as her last one was in 2014. In addition, patient has a significant systolic murmur. Patient received Lasix 40 mg IV push while in the emergency department. She is on 80 mg of p.o. Lasix at home. I will continue patient's 80 mg of p.o. Lasix daily as she takes at home. I suspect patient may need a second dose of IV Lasix tomorrow, but we will reassess at that time. I have also ordered daily weights and strict Is and Os. 3. Community-acquired pneumonia: There is concern for community-acquired pneumonia given patient's chest x-ray, shortness of breath, tachycardia, tachypnea, reported elevated temperature. Patient has been started on ceftriaxone and azithromycin while in the emergency room. I will continue these at this point. If her symptoms deteriorate, I would recommend covering for pseudomonas as patient lives at a long-term care facility. 4. Sepsis: Patient meets sepsis criteria given elevated heart rate, tachypnea , suspected source. As mentioned above, patient has been started on antibiotics. We have held off on IV fluid bolus given patient's congestive heart failure exacerbation. Patient has been pancultured. 5. Pancytopenia: As mentioned above, patient has a history of pancytopenia. Her labs are also consistent with this. All of her labs are near patient's baseline with the exception of her hemoglobin, which is 8.9 and her baseline is closer to 10, and hematocrit, which is 27 at her baseline is closer to 30. I suspect this is probably dilutional given patient's congestive heart failure exacerbation, but I have ordered iron studies, vitamin B12, folate, and stool. 4. Elevated troponin: Patient's troponin initially in the ED was 0.06. In addition, she has elevated BNP of 249. I suspect this elevation is due to demand ischemia given the patient's [id number]-ufgvbju congestive heart failure exacerbation. EKG was normal. Patient is asymptomatic. Either way, I will trend patient's troponins. 5. Dementia: I will continue patient's carbidopa/levodopa and provide supportive care. 6. Congestive heart failure: We will treat patient's congestive heart failure exacerbation with IV Lasix. We will continue patient's p.o. Lasix and her spironolactone. We will monitor her electrolytes. 7. Parkinson's: We will continue patient's home medications as same. 8. Cirrhosis: I will continue patient's diuretics. In addition, I have added on ammonia to be drawn. 9. Diabetes: It mentions in patient's history that she is a diabetic, although I do not see any diabetic medications on her regimen. I have ordered a hemoglobin A1c to be added on to her labs. 10. Hypothyroid: Once again, it appears patient carries a history of hypothyroidism, but I do not see any medications to suggest that she is being treated for this. I will add on a TSH. 11. Anemia (iron deficiency): As mentioned above, patient is pancytopenic, but her H and H is slightly lower than baseline. I suspect this is dilutional. Either way, I have ordered iron studies and a stool for guaiac. 12. Depression: We will continue patient's home medications as same. 13. Gastroesophageal reflux disease: We will continue patient's omeprazole. 14. FEN: Patient will be provided with a low-sodium diet. 15. Code status: Patient is a DNR and has a MOLST in the chart. 16. DVT prophylaxis: Based on DVT Risk Assessment, patient is high risk. I will order subcu heparin. TIME SPENT: Approximately 65 minutes were spent on this admission, greater than half the time was spent with the patient obtaining my history, performing my physical exam, and reviewing my plan of care. This case has also been reviewed with my attending, Dr. Sin, who is in agreement with my plan of care. Reviewed by IVETTE AREVALO NP 01/26/19 @ [id number] [id number]/[facility] #: [id number] EL[place]
[2019-01-25 23:14] LABS: Troponin I 0.06 ng/mL (<0.04)
[2019-01-26] MEDS: Acetaminophen TAB* 325 MG PO SCH ×7 (00:01→23:16)
[2019-01-26] MEDS: Heparin VIAL(*) 5000 UNITS/ML VIAL (FIVE THOUSAND) SUBCUT SCH ×3 (05:49→21:21)
[2019-01-26 06:06] LABS: ABS Basophils 0 10^3/ul (0-0.2); ABS Eosinophils 0.2 10^3/ul (0-0.6); ABS Lymphocytes 0.4 10^3/ul (1.0-4.8); ABS Monocytes 0.7 10^3/ul (0-0.8); ABS Neutrophils 3.8 10^3/ul (1.5-7.7); ABS Nucleated RBC 0 10^3/ul; Eosinophil % 3.3 %; Hematocrit 26 % (33-41); Hemoglobin 8.6 g/dL (12.0-16.0); Lymphocyte % 7.5 %; Mean Corpuscular HGB Conc 33 g/dL (31-36); Mean Corpuscular Hemoglobin 34 pg (27-31); Mean Corpuscular Volume 104 fL (80-97); Mean Platelet Volume 10.5 fL (7.4-10.4); Nucleated Red Blood Cells % 0; Platelet Count 80 10^3/uL (150-450); Red Cell Distribution Width 16 % (10.5-15)
[2019-01-26 06:21] LABS: BUN/Creatinine Ratio 29.6 (8-20); Calcium 9.8 mg/dL (8.6-10.3); EGFR African American 84.1 (>60); EGFR Non-African American 69.5 (>60); Potassium 4.3 mmol/L (3.5-5.0)
[2019-01-26 06:37] LABS: TSH (Thyroid Stimulating Horm) 1.98 mcIU/mL (0.34-5.60)
[2019-01-26] MEDS: Carbidopa/Levodop 25/100 MG TAB(*) PO SCH ×4 (07:47→21:19)
[2019-01-26] MEDS: Furosemide TAB* 40 MG PO SCH (07:47)
[2019-01-26] MEDS: Spironolactone TAB* 25 MG PO SCH (07:47)
[2019-01-26] MEDS: Losartan TAB* 25 MG PO SCH (07:47)
[2019-01-26] MEDS: Magnesium Oxide TAB* 400 MG PO SCH (07:47)
[2019-01-26] MEDS: Lidocaine Patch REMOVE* 1 NOTE MISC PATCH OFF SCH (07:55)
[2019-01-26] MEDS: Mirabegron (NF) 50 MG TAB PO SCH (07:56)
--- NOTE | 2019-01-26 12:05 | ECHO ---
*[facility]* [place] [address] Fax #: [phone] Transthoracic Echocardiogram Patient: [place], Height: 60 in / Carey Smrat 152.4 cm : 1945 Weight: 223.5 lb / Study Date: 01/26/2019 101.6 kg Age: 73 BP: 137 / 55 Gender: F BMI/BSA: 43.7 kg/m^2 HR: 110 bpm / 1.96 m^2 *[employer] Set Up Operator: * Samantha Glynn RDCS RN *Referring Physician: * Lizz Scruggs *Reading Physician: * Tai Morton MD Indications: Congestive Heart Failure. History: Congestive heart failure. Risk factors: Hypertension. Obese. Dyslipidemia. Chronic pleural effusion. Conclusions Summary: 1. Left ventricle: Systolic function is hyperdynamic. The estimated ejection fraction is 65-70%. Systolic function is unchanged from the study of 07/02/2015. There is dynamic obstruction with left ventricular outflow tract turbulence and increased velocities. Wall motion is normal; there are no regional wall motion abnormalities. 2. Mitral valve: There is mild regurgitation. 3. Aortic valve: The annulus is mildly calcified. The valve is trileaflet. The leaflets are mildly thickened. There is no evidence of stenosis. There is calcified structure in the left ventricle outflow tract causing turbulence and mild obstruction The small calcified structure is new comapred to previous study. 4. Tricuspid valve: There is mild regurgitation. The peak RV-RA systolic gradient is 49 mm Hg. 5. Pericardium, extracardiac: There is no pericardial effusion. There is a left pleural effusion. 6. Pulmonary arteries: Systolic pressure is moderately to severely increased. Pulmonary artery pressure has increased from the study of 07/02/2015. Study data: Transthoracic echocardiogram. Procedure: Transthoracic echocardiography was performed. Image quality was fair. The study was technically limited due to restricted patient mobility and body habitus. Complete 2D, spectral Doppler, and color flow Doppler. Patient status: Inpatient. Patient room number: 436. The previous study was not available, so comparison is made to the report of 07/02/2015. Rhythm: Tachycardia with PACs. Findings Left ventricle: The cavity size is normal. Wall thickness is mildly increased. Systolic function is hyperdynamic. The estimated ejection fraction is 65-70%. Systolic function is unchanged from the study of 07/02/2015. There is dynamic obstruction with left ventricular outflow tract turbulence and increased velocities. Wall motion is normal; there are no regional wall motion abnormalities. Doppler parameters are consistent with abnormal left ventricular relaxation (grade 1 diastolic dysfunction). Right ventricle: The cavity size is normal. Systolic function is normal. The estimated peak pressure is 57 mm Hg. There is moderate pulmonary hypertension. Left atrium: The atrium is moderately dilated. Right atrium: The atrium is normal in size. Mitral valve: The annulus is moderately calcified. The leaflets are mildly thickened. The findings are consistent with mild stenosis. There is mild regurgitation. The valve area by pressure half-time is 2.0 cm^2. The valve area index by pressure half-time is 1.02 cm^2/m^2. The mean diastolic gradient is 5.0 mm Hg. The peak diastolic gradient is 16.0 mm Hg. Aortic valve: The annulus is mildly calcified. The valve is trileaflet. The leaflets are mildly thickened. There is no evidence of stenosis. There is no significant regurgitation. The LVOT to aortic valve VTI ratio is 0.9. The ratio of LVOT to aortic valve peak velocity is 0.67. The ratio of LVOT to aortic valve mean velocity is 0.72. The mean systolic gradient is 16.0 mm Hg. The peak systolic gradient is 36.0 mm Hg. Tricuspid valve: The leaflets are normal thickness. There is no evidence of stenosis. There is mild regurgitation. Pulmonic valve: The leaflets are normal thickness. There is trivial regurgitation. The peak systolic gradient is 12.0 mm Hg. Aorta: Aortic root: The aortic root is not dilated. Ascending aorta: The ascending aorta is not dilated. Aortic arch: The aortic arch is not visualized. Pericardium: There is no pericardial effusion. There is a left pleural effusion. Pulmonary arteries: The main pulmonary artery is normal-sized. There is increased turbulence and increased velocities in the pulmonary artery. Systolic pressure is moderately to severely increased. Pulmonary artery pressure has increased from the study of 07/02/2015. Systemic veins: Inferior vena cava: Not well visualized. Measurements Left ventricle Value Ref Aortic valve Value Ref MJ, LAX 4.0 cm 3.8 - 5.2 Indra diam, ED 1.8 cm --------- ESD, LAX 2.2 cm 2.2 - 3.5 Peak v, S 3 m/sec --------- FS, LAX 45 % 27 - 45 Mean v, S 2 m/sec --------- PW, ED (H) 1.2 cm 0.6 - 0.9 VTI, S 48.3 cm --------- E', lat indra, TDI (L) 9.7 cm/sec >=10.0 Mean grad, S 16.0 mm Hg - -------- E/e', lat indra, 15 Peak grad, S 36.0 mm Hg ---- ----- TDI LVOT/AV, VTI ratio 0.9 --------- E', med indra, TDI 7.4 cm/sec >=7.0 E/e', med indra, 20 Mitral valve Value Ref TDI Peak E 1.46 m/sec --------- E', avg, TDI 8.6 cm/sec Peak A 1.74 m/sec ---- ----- E/e', avg, TDI (H) 17 <=14 Mean v, D 0.97 m/sec - -------- Decel time 268 ms --------- LVOT Value Ref PHT 110 ms --------- Peak trevin, S 2.01 m/sec Mean grad, D 5.0 mm Hg --------- Mean trevin, S 1.43 m/sec Peak grad, D 16.0 mm Hg --------- VTI, S 43.6 cm Peak E/A ratio 0.8 --------- Peak grad, S 16 mm Hg MVA, PHT 2.0 cm^2 --------- Mean grad, S 9 mm Hg Pulmonic valve Value Ref Ventricular septum Value Ref Peak v, S 1.7 m/sec --------- IVS, ED (H) 1.2 cm 0.6 - 0.9 Peak grad, S 12.0 mm Hg --------- Right ventricle Value Ref Tricuspid valve Value Ref MJ, LAX 2.5 cm TR peak v (H) 3.5 m/sec <=2.8 MJ minor ax, 2.8 cm 1.9 - 3.5 A4C mid Aortic root Value Ref Root diam 2.9 cm <4.1 Left atrium Value Ref Root max diam, ED 2.9 cm <4.1 AP dim, ES 3.30 cm 2.70 - Root max diam/bsa, 1.5 cm/m^2 1.4 - 2.2 3.80 ED ML dim, A4C 4.8 cm Vol/bsa, ES, 1-p 36 ml/m^2 11 - 40 Ascending aorta Value Ref A4C AAo AP diam, S 3.2 cm --------- Vol/bsa, ES, 1-p (H) 58 ml/m^2 13 - 40 A2C Vol/bsa, ES, A/L (H) 48 ml/m^2 16 - 34 Right atrium Value Ref ML dim, ES, A4C 3.7 cm 2.6 - 4.4 SI dim, ES, A4C 5.1 cm 3.4 - 5.3 Legend: (L) and (H) marly values outside specified reference range. Prepared and electronically signed by Tai oMrton MD 01/26/2019 12:04
[2019-01-26] MEDS: Magnesium Hydroxide LIQ* 30 ML UDC PO PRN (12:32)
[2019-01-26] MEDS: Simethicone TAB* 80 MG TAB.CHEW PO PRN (13:07)
[2019-01-26] MEDS: cefTRIAXone(*) 1 GM in NS 0.9% 50 ML* 50 ML IVPB SCH (17:23)
--- NOTE | 2019-01-26 17:44 | PN ---
Subjective Date of Service: 01/26/19 Interval History: Patient seen and examined. Very confused with history of advanced dementia. Able to answer simple questions, not a reliable historian, but does not complain of pain and states SOB is "better". Objective Active Medications: Acetaminophen (Tylenol Tab*) 650 mg PO Q4H [facility] Last Admin: 01/26/19 15:19 Dose: 650 mg Al Hydrox/Mg Hydrox/Simethicone (Maalox Plus*) 30 ml PO Q6H PRN PRN Reason: INDIGESTION Albuterol (Ventolin 2.5 Mg/3 Ml Neb.Mily*) 2.5 mg INH [id number] AWAKE PRN PRN Reason: sob/wheezing Albuterol (Ventolin Hfa Inhaler*) 2 puff INH Q4H PRN PRN Reason: SOB/WHEEZING Albuterol/Ipratropium (Duoneb (Albuterol 2.5 Mg/Ipratropium 0.5 Mg)) 1 neb INH [id number] AWAKE PRN PRN Reason: sob/wheexing Calcium Carbonate (Tums*) 500 mg PO Q4H PRN PRN Reason: HEARTBURN Last Admin: 01/26/19 13:07 Dose: 500 mg Carbidopa/Levodopa (Sinemet 25/100 Tab(*)) 1.5 tab PO QID [facility] Last Admin: 01/26/19 17:22 Dose: 1.5 tab Duloxetine HCl (Cymbalta Cap*) 40 mg PO BEDTIME [facility] Last Admin: 01/25/19 21:06 Dose: 40 mg Furosemide (Lasix Tab*) 80 mg PO QAM [facility] Last Admin: 01/26/19 07:47 Dose: 80 mg Glycerin (Glycerin Adult Supp*) 1 supp [place] DAILY PRN PRN Reason: CONSTIPATION Heparin Sodium (Porcine) (Heparin Vial(*)) 5,000 units SUBCUT Q8HR [facility] Last Admin: 01/26/19 13:07 Dose: 5,000 units Azithromycin 250 mg/ Sodium (Chloride) 250 mls @ 250 mls/hr IVPB Q24H PATTI Ceftriaxone Sodium 1 gm/ (Sodium Chloride) 50 mls @ 200 mls/hr IVPB Q24H [facility] Last Admin: 01/26/19 17:23 Dose: 200 mls/hr Lactulose (Lactulose*) 30 ml PO BID [facility] Last Admin: 01/26/19 07:48 Dose: 30 ml Latanoprost (Xalatan 0.005%*) 1 drop BOTH EYES BEDTIME [facility] Last Admin: 01/25/19 21:06 Dose: 1 drop Lidocaine (Lidoderm 5% Patch*) 1 patch TRANSDERM Q24H [facility] Last Admin: 01/25/19 21:09 Dose: 1 patch Losartan Potassium (Cozaar Tab*) 50 mg PO DAILY [facility] Last Admin: 01/26/19 07:47 Dose: 50 mg Magnesium Hydroxide (Milk Of Magnesia Liq*) 30 ml PO Q4H PRN PRN Reason: CONSTIPATION Last Admin: 01/26/19 12:32 Dose: 30 ml Magnesium Hydroxide (Milk Of Magnesia Liq*) 30 ml PO Q72HR PRN PRN Reason: CONSTIPATION Magnesium Oxide (Magox 400 Tab*) 400 mg PO QAM [facility] Last Admin: 01/26/19 07:47 Dose: 400 mg Mirabegron (Myrbetriq (Nf)) 50 mg PO DAILY [facility] Last Admin: 01/26/19 07:56 Dose: Not Given Pantoprazole Sodium (Protonix Tab*) 40 mg PO DAILY PRN PRN Reason: HEARTBURN Pharmacy Profile Note (Lidocaine Patch Remove*) 1 note PATCH OFF 0900 [facility] Last Admin: 01/26/19 07:55 Dose: 1 note Simethicone (Mylicon Tab*) 80 mg PO Q4HR PRN PRN Reason: Gas Last Admin: 01/26/19 13:07 Dose: 80 mg Spironolactone (Aldactone Tab*) 25 mg PO DAILY [facility] Last Admin: 01/26/19 07:47 Dose: 25 mg Vital Signs - 8 hr 01/26/19 01/26/19 01/26/19 11:26 12:24 15:31 Temperature 98.2 F 98.2 F 97.4 F Pulse Rate 92 92 93 Respiratory 20 20 20 Rate Blood Pressure 145/51 145/51 156/62 (mmHg) O2 Sat by Pulse 99 99 98 Oximetry Oxygen Devices in Use Now: Nasal Cannula Appearance: alert, NAD Eyes: No Scleral Icterus, PERRLA, - Ears/Nose/Mouth/Throat: Mucous Membranes Moist, - - poor dentition Neck: NL Appearance and Movements; NL JVP, Trachea Midline Respiratory: Symmetrical Chest Expansion and Respiratory Effort, - - shallow respiratory effort, bilateral crackles, diminished throughout Cardiovascular: RRR - systolic mumur noted, no gallups or rubs, - Abdominal: - - distended firm pos BS x4 quad Extremities: No Clubbing, Cyanosis Skin: No Nodules or Sclerosis Neurological: - - confused Nutrition: Taking PO's Result Diagrams: 01/26/19 05:23 01/26/19 05:23 Microbiology and Other Data: Microbiology 01/25/19 15:27 Aerobic Blood Culture - Preliminary Blood Venous No Growth Day 1 Anaerobic Blood Culture - Preliminary No Growth Day 1 01/25/19 16:16 Aerobic Blood Culture - Preliminary Blood Venous No Growth Day 1 Anaerobic Blood Culture - Preliminary No Growth Day 1 01/25/19 22:17 Nasal Screen MRSA (PCR) - Final Nasal Mrsa Not Detected Diagnostic Imaging: Patient Name: CAREY CLAUDIO Medical Record#: [id number] Ordering Physician: Yakov Bello MD Acct.#: [id number] : 1945 Age: 73 Sex: F Location: EMERGENCY DEPARTMENT Exam Date: 01/25/191526 ADM Status: REG ER Order Information: CHEST AP OR PORT Accession Number: [id number] CPT: 86152 HISTORY: SOB COMPARISONS: January 23, 2019 VIEWS: 1: frontal AP view of the chest at 3:45 PM FINDINGS: LINES AND TUBES: None. CARDIOMEDIASTINAL SILHOUETTE: The cardiomediastinal silhouette is stable. PLEURA: There is blunting of left costophrenic angle. LUNG PARENCHYMA: There is prominence of the central pulmonary vasculature. There is confluent alveolar opacification of the left lung base. ABDOMEN: The upper abdomen is clear. There is no subphrenic gas. BONES AND SOFT TISSUES: No bone or soft tissue abnormalities are noted. IMPRESSION: 1. LEFT BASILAR ATELECTASIS VERSUS CONSOLIDATION WITH A SMALL LEFT PLEURAL EFFUSION. 2. PULMONARY VASCULAR CONGESTION. *[facility]* [place] [address] Fax #: [phone] Transthoracic Echocardiogram Patient: [place], Height: 60 in / Carey Smart 152.4 cm : 1945 Weight: 223.5 lb / Study Date: 01/26/2019 101.6 kg Age: 73 BP: 137 / 56 Gender: F BMI/BSA: 43.7 kg/m^2 HR: 110 bpm / 1.96 m^2 *[employer] Consultant: * Samantha Glynn RDCS RN *Referring Physician: * Lizz Scruggs *Reading Physician: * Tai Morton MD Indications: Congestive Heart Failure. History: Congestive heart failure. Risk factors: Hypertension. Obese. Dyslipidemia. Chronic pleural effusion. Conclusions Summary: 1. Left ventricle: Systolic function is hyperdynamic. The estimated ejection fraction is 65-70%. Systolic function is unchanged from the study of 07/02/2015. There is dynamic obstruction with left ventricular outflow tract turbulence and increased velocities. Wall motion is normal; there are no regional wall motion abnormalities. 2. Mitral valve: There is mild regurgitation. 3. Aortic valve: The annulus is mildly calcified. The valve is trileaflet. The leaflets are mildly thickened. There is no evidence of stenosis. There is calcified structure in the left ventricle outflow tract causing turbulence and mild obstruction The small calcified structure is new comapred to previous study. 4. Tricuspid valve: There is mild regurgitation. The peak RV-RA systolic gradient is 49 mm Hg. 5. Pericardium, extracardiac: There is no pericardial effusion. There is a left pleural effusion. 6. Pulmonary arteries: Systolic pressure is moderately to severely increased. Pulmonary artery pressure has increased from the study of 07/02/2015. Assess/Plan/Problems-Billing Assessment: This is a 73 year old female with multiple comorbid conditions that resides in [facility] that presents in the ED with reports of cough and SOB, admitted for CAP and acute on chronic HF. - Patient Problems (1) CAP (community acquired pneumonia) Code(s): J18.9 - PNEUMONIA, UNSPECIFIED ORGANISM SNOMED Code(s): 892900437 Comment: - consolidation with pleural effusion as noted on CXR above - Continue azithromycin and ceftriaxone - Follow cultures - Nebs PRN (2) Acute exacerbation of congestive heart failure Code(s): I50.9 - HEART FAILURE, UNSPECIFIED SNOMED Code(s): 12303221 Comment: - Diastolic dysfunction and pulmonary HTN noted on ECHO (no change from previous) - Pulmonary vascular congestion on CXR above with mildly elevated BNP - Continue diuresis - Supplemental O2 - Strict I&Os, low sodium diet (3) Dementia Code(s): F03.90 - UNSPECIFIED DEMENTIA WITHOUT BEHAVIORAL DISTURBANCE SNOMED Code(s): 75305777 Comment: - No agitation, continue supportive care (4) Liver cirrhosis Priority: Medium Onset Date: 06/30/15 Comment: - LFTs normal - Ammonia slightly elevated, but not far from baseline - continue spironolactone (5) Pancytopenia Code(s): D61.818 - OTHER PANCYTOPENIA SNOMED Code(s): 876227291 Comment: - Chronic, currently at baseline 2/2 liver disease (6) Parkinson disease Code(s): G20 - PARKINSON'S DISEASE SNOMED Code(s): 28300738 Comment: - Continue sinemet (7) DVT prophylaxis Code(s): RRW3544 - SNOMED Code(s): 997667335 Comment: - HSQ (8) DNR (do not resuscitate) Status and Disposition: Inpatient for IV atbx and diuresis
[2019-01-26] MEDS: Azithromycin IV(*) 250 MG in NS 0.9% 250 ML* 250 ML IVPB SCH (17:56)
[2019-01-26] MEDS: traMADol TAB* 50 MG PO PRN (19:48)
[2019-01-26] MEDS: DULoxetine DR CAP* 20 MG CAP.DR PO SCH (21:20)
[2019-01-26] MEDS: Lidocaine PATCH 5%* 1 PATCH TRANSDERM SCH (21:20)
[2019-01-26] MEDS: Latanoprost 0.005%* 2.5 ml BTL BOTH EYES SCH (21:33)
[2019-01-27] MEDS: Acetaminophen TAB* 325 MG PO SCH ×6 (02:14→23:59)
[2019-01-27] MEDS: traMADol TAB* 50 MG PO PRN ×3 (02:15→17:56)
[2019-01-27] MEDS: Heparin VIAL(*) 5000 UNITS/ML VIAL (FIVE THOUSAND) SUBCUT SCH ×3 (05:46→21:58)
[2019-01-27] MEDS: Losartan TAB* 25 MG PO SCH (09:22)
[2019-01-27] MEDS: Carbidopa/Levodop 25/100 MG TAB(*) PO SCH ×4 (09:23→21:58)
[2019-01-27] MEDS: Furosemide TAB* 40 MG PO SCH (09:24)
[2019-01-27] MEDS: Magnesium Oxide TAB* 400 MG PO SCH (09:24)
[2019-01-27] MEDS: Simethicone TAB* 80 MG TAB.CHEW PO PRN (11:35)
[2019-01-27] MEDS: Mirabegron (NF) 50 MG TAB PO SCH (11:37)
[2019-01-27] MEDS: Lidocaine Patch REMOVE* 1 NOTE MISC PATCH OFF SCH (11:37)
[2019-01-27] MEDS: Magnesium Hydroxide LIQ* 30 ML UDC PO PRN (15:33)
[2019-01-27] MEDS ORDERED: Sodium Phosphate ADULT ENEMA* 118 ml bottle PR ONE (17:13)
--- NOTE | 2019-01-27 17:21 | PN ---
Subjective Date of Service: 01/27/19 Interval History: Patient seen and examined. Appears uncomfortable today, no SOB, but per son at bedside, patient was in a lot of pain when they moved her earlier. Also noted is no bowel movement as yet. Patient states she doesn't feel "well" today but cannot articulate further. Objective Active Medications: Acetaminophen (Tylenol Tab*) 650 mg PO Q4H [facility] Last Admin: 01/27/19 15:29 Dose: 650 mg Al Hydrox/Mg Hydrox/Simethicone (Maalox Plus*) 30 ml PO Q6H PRN PRN Reason: INDIGESTION Albuterol (Ventolin 2.5 Mg/3 Ml Neb.Mily*) 2.5 mg INH [id number] AWAKE PRN PRN Reason: sob/wheezing Albuterol (Ventolin Hfa Inhaler*) 2 puff INH Q4H PRN PRN Reason: SOB/WHEEZING Albuterol/Ipratropium (Duoneb (Albuterol 2.5 Mg/Ipratropium 0.5 Mg)) 1 neb INH [id number] AWAKE PRN PRN Reason: sob/wheexing Calcium Carbonate (Tums*) 500 mg PO Q4H PRN PRN Reason: HEARTBURN Last Admin: 01/26/19 13:07 Dose: 500 mg Carbidopa/Levodopa (Sinemet 25/100 Tab(*)) 1.5 tab PO QID [facility] Last Admin: 01/27/19 12:49 Dose: 1.5 tab Duloxetine HCl (Cymbalta Cap*) 40 mg PO BEDTIME [facility] Last Admin: 01/26/19 21:20 Dose: 40 mg Furosemide (Lasix Tab*) 80 mg PO QAM [facility] Last Admin: 01/27/19 09:24 Dose: 80 mg Glycerin (Glycerin Adult Supp*) 1 supp [place] DAILY PRN PRN Reason: CONSTIPATION Heparin Sodium (Porcine) (Heparin Vial(*)) 5,000 units SUBCUT Q8HR [facility] Last Admin: 01/27/19 12:50 Dose: 5,000 units Azithromycin 250 mg/ Sodium (Chloride) 250 mls @ 250 mls/hr IVPB Q24H [facility] Last Admin: 01/26/19 17:56 Dose: 250 mls/hr Ceftriaxone Sodium 1 gm/ (Sodium Chloride) 50 mls @ 200 mls/hr IVPB Q24H [facility] Last Admin: 01/26/19 17:23 Dose: 200 mls/hr Lactulose (Lactulose*) 30 ml PO BID [facility] Last Admin: 01/27/19 09:24 Dose: 30 ml Latanoprost (Xalatan 0.005%*) 1 drop BOTH EYES BEDTIME [facility] Last Admin: 01/26/19 21:33 Dose: 1 drop Lidocaine (Lidoderm 5% Patch*) 1 patch TRANSDERM Q24H [facility] Last Admin: 01/26/19 21:20 Dose: 1 patch Losartan Potassium (Cozaar Tab*) 50 mg PO DAILY [facility] Last Admin: 01/27/19 09:22 Dose: 50 mg Magnesium Hydroxide (Milk Of Magnesia Liq*) 30 ml PO Q4H PRN PRN Reason: CONSTIPATION Last Admin: 01/27/19 15:33 Dose: 30 ml Magnesium Hydroxide (Milk Of Magnesia Liq*) 30 ml PO Q72HR PRN PRN Reason: CONSTIPATION Magnesium Oxide (Magox 400 Tab*) 400 mg PO QAM [facility] Last Admin: 01/27/19 09:24 Dose: 400 mg Mirabegron (Myrbetriq (Nf)) 50 mg PO DAILY [facility] Last Admin: 01/27/19 11:37 Dose: Not Given Pantoprazole Sodium (Protonix Tab*) 40 mg PO DAILY PRN PRN Reason: HEARTBURN Pharmacy Profile Note (Lidocaine Patch Remove*) 1 note PATCH OFF 0900 [facility] Last Admin: 01/27/19 11:37 Dose: 1 note Simethicone (Mylicon Tab*) 80 mg PO Q4HR PRN PRN Reason: Gas Last Admin: 01/27/19 11:35 Dose: 80 mg Sodium Biphosphate/Sodium Phosphate (Fleet Enema*) 1 bottle [place] ONCE ONE Stop: 01/27/19 17:14 Spironolactone (Aldactone Tab*) 25 mg PO DAILY [facility] Last Admin: 01/26/19 07:47 Dose: 25 mg Tramadol HCl (Ultram*) 100 mg PO Q6H PRN PRN Reason: HEADACHE/PAIN Last Admin: 01/27/19 11:36 Dose: 100 mg Vital Signs - 8 hr 01/27/19 01/27/19 01/27/19 11:21 11:36 14:21 Temperature 98.5 F 97.8 F Pulse Rate 104 107 Respiratory 24 22 24 Rate Blood Pressure 160/60 156/65 (mmHg) O2 Sat by Pulse 98 98 Oximetry 01/27/19 01/27/19 01/27/19 15:11 15:34 15:48 Temperature 98.2 F 97.8 F Pulse Rate 107 107 Respiratory 24 20 24 Rate Blood Pressure 141/68 156/65 (mmHg) O2 Sat by Pulse 98 98 Oximetry 01/27/19 17:01 Temperature Pulse Rate Respiratory 22 Rate Blood Pressure (mmHg) O2 Sat by Pulse Oximetry Oxygen Devices in Use Now: Nasal Cannula Appearance: alert, mild distress Eyes: No Scleral Icterus, PERRLA Ears/Nose/Mouth/Throat: Mucous Membranes Moist Neck: NL Appearance and Movements; NL JVP, Trachea Midline Respiratory: - - shallow respirations, no rhonchi, adequate air entry, no wheeze Cardiovascular: NL Sounds; No Murmurs; No JVD, RRR, No Edema Abdominal: - - distended, firm, hypoactive BS Extremities: No Clubbing, Cyanosis Skin: No Rash or Ulcers, No Nodules or Sclerosis Neurological: - - confused Nutrition: Taking PO's Result Diagrams: 01/26/19 05:23 01/26/19 05:23 Microbiology and Other Data: Microbiology 01/25/19 15:27 Aerobic Blood Culture - Preliminary Blood Venous No Growth Day 1 Anaerobic Blood Culture - Preliminary No Growth Day 1 01/25/19 16:16 Aerobic Blood Culture - Preliminary Blood Venous No Growth Day 1 Anaerobic Blood Culture - Preliminary No Growth Day 1 01/25/19 22:17 Nasal Screen MRSA (PCR) - Final Nasal Mrsa Not Detected Diagnostic Imaging: Patient Name: CAREY CLAUDIO Medical Record#: [id number] Ordering Physician: Liss Anand NP Acct.#: [id number] : 1945 Age: 73 Sex: F Location: [address] [place] [address] - MEDICAL/TELEMETRY Exam Date: 01/27/191517 ADM Status: ADM IN Order Information: ABDOMEN (COMPLETE) 2 [facility] Accession Number: [id number] CPT: 31049 Indication: Abdominal pain. Comparison: June 17, 2013 CT. Technique: Supine and upright views of the abdomen. Report: Obesity limits image quality. No visualized free air beneath the diaphragm. Moderately severe distention of the rectum with formed stool and gas. Mild gas distention of the transverse colon. No dilated small bowel loops evident. No suspicious calcifications or mass effect evident. IMPRESSION: #. Limited exam due to obese body habitus without visualized abdominal pelvic pathologic process evident. Patient Name: CAREY CLAUDIO Medical Record#: [id number] Ordering Physician: Yakov Bello MD Acct.#: [id number] : 1945 Age: 73 Sex: F Location: EMERGENCY DEPARTMENT Exam Date: 01/25/191526 ADM Status: REG ER Order Information: CHEST AP OR PORT Accession Number: [id number] CPT: 36828 HISTORY: SOB COMPARISONS: January 23, 2019 VIEWS: 1: frontal AP view of the chest at 3:45 PM FINDINGS: LINES AND TUBES: None. CARDIOMEDIASTINAL SILHOUETTE: The cardiomediastinal silhouette is stable. PLEURA: There is blunting of left costophrenic angle. LUNG PARENCHYMA: There is prominence of the central pulmonary vasculature. There is confluent alveolar opacification of the left lung base. ABDOMEN: The upper abdomen is clear. There is no subphrenic gas. BONES AND SOFT TISSUES: No bone or soft tissue abnormalities are noted. IMPRESSION: 1. LEFT BASILAR ATELECTASIS VERSUS CONSOLIDATION WITH A SMALL LEFT PLEURAL EFFUSION. 2. PULMONARY VASCULAR CONGESTION. *[facility]* [place] [address] Fax #: [phone] Transthoracic Echocardiogram Patient: [place], Height: 60 in / Carey Smart 152.4 cm : 1945 Weight: 223.5 lb / Study Date: 01/26/2019 101.6 kg Age: 73 BP: 137 / 56 Gender: F BMI/BSA: 43.7 kg/m^2 HR: 110 bpm / 1.96 m^2 *Human Machine Interface Engineer: * Samantha Glynn RDCS RN *Referring Physician: * Lizz Scruggs *Reading Physician: * Tai Morton MD Indications: Congestive Heart Failure. History: Congestive heart failure. Risk factors: Hypertension. Obese. Dyslipidemia. Chronic pleural effusion. Conclusions Summary: 1. Left ventricle: Systolic function is hyperdynamic. The estimated ejection fraction is 65-70%. Systolic function is unchanged from the study of 07/02/2015. There is dynamic obstruction with left ventricular outflow tract turbulence and increased velocities. Wall motion is normal; there are no regional wall motion abnormalities. 2. Mitral valve: There is mild regurgitation. 3. Aortic valve: The annulus is mildly calcified. The valve is trileaflet. The leaflets are mildly thickened. There is no evidence of stenosis. There is calcified structure in the left ventricle outflow tract causing turbulence and mild obstruction The small calcified structure is new comapred to previous study. 4. Tricuspid valve: There is mild regurgitation. The peak RV-RA systolic gradient is 49 mm Hg. 5. Pericardium, extracardiac: There is no pericardial effusion. There is a left pleural effusion. 6. Pulmonary arteries: Systolic pressure is moderately to severely increased. Pulmonary artery pressure has increased from the study of 07/02/2015. Assess/Plan/Problems-Billing Assessment: This is a 73 year old female with multiple comorbid conditions that resides in [facility] that presents in the ED with reports of cough and SOB, admitted for CAP and acute on chronic HF. - Patient Problems (1) CAP (community acquired pneumonia) Code(s): J18.9 - PNEUMONIA, UNSPECIFIED ORGANISM SNOMED Code(s): 070999511 Comment: - consolidation with pleural effusion as noted on CXR above - Continue azithromycin and ceftriaxone - Follow cultures - Nebs PRN (2) Acute exacerbation of congestive heart failure Code(s): I50.9 - HEART FAILURE, UNSPECIFIED SNOMED Code(s): 68814054 Comment: - Diastolic dysfunction and pulmonary HTN noted on ECHO (no change from previous) - Pulmonary vascular congestion on CXR above with mildly elevated BNP - Continue diuresis - Supplemental O2 - Strict I&Os, low sodium diet (3) Dementia Code(s): F03.90 - UNSPECIFIED DEMENTIA WITHOUT BEHAVIORAL DISTURBANCE SNOMED Code(s): 93617696 Comment: - No agitation, continue supportive care (4) Liver cirrhosis Priority: Medium Onset Date: 06/30/15 Comment: - Abdominal distension today and appears more uncomfortable - Xray abdomen as above, no acute findings, does appear constipated - LFTs normal - Ammonia slightly elevated, but not far from baseline - continue spironolactone - continue bowel regimen, will add fleet enema today (5) Pancytopenia Code(s): D61.818 - OTHER PANCYTOPENIA SNOMED Code(s): 062358208 Comment: - Chronic, currently at baseline 2/2 liver disease (6) Parkinson disease Code(s): G20 - PARKINSON'S DISEASE SNOMED Code(s): 95595224 Comment: - Continue sinemet (7) DVT prophylaxis Code(s): UJH2465 - SNOMED Code(s): 305625913 Comment: - HSQ (8) DNR (do not resuscitate) Status and Disposition: Inpatient for IV atbx and diuresis
[2019-01-27] MEDS: cefTRIAXone(*) 1 GM in NS 0.9% 50 ML* 50 ML IVPB SCH (18:06)
[2019-01-27] MEDS: Azithromycin IV(*) 250 MG in NS 0.9% 250 ML* 250 ML IVPB SCH (18:52)
[2019-01-27] MEDS: DULoxetine DR CAP* 20 MG CAP.DR PO SCH (21:58)
[2019-01-27] MEDS: Lidocaine PATCH 5%* 1 PATCH TRANSDERM SCH (21:59)
[2019-01-27] MEDS: Latanoprost 0.005%* 2.5 ml BTL BOTH EYES SCH (22:00)
[2019-01-28] MEDS: Acetaminophen TAB* 325 MG PO SCH ×6 (03:33→23:23)
[2019-01-28] MEDS: traMADol TAB* 50 MG PO PRN ×3 (06:03→16:24)
[2019-01-28] MEDS: Heparin VIAL(*) 5000 UNITS/ML VIAL (FIVE THOUSAND) SUBCUT SCH ×3 (06:03→21:09)
[2019-01-28 06:31] LABS: ABS Basophils 0 10^3/ul (0-0.2); ABS Eosinophils 0.1 10^3/ul (0-0.6); ABS Lymphocytes 0.4 10^3/ul (1.0-4.8); ABS Monocytes 0.5 10^3/ul (0-0.8); ABS Nucleated RBC 0 10^3/ul; Eosinophil % 1.9 %; Hematocrit 27 % (35-47); Lymphocyte % 7.4 %; Mean Corpuscular HGB Conc 34 g/dL (31-36); Mean Corpuscular Hemoglobin 35 pg (27-31); Mean Corpuscular Volume 105 fL (80-97); Mean Platelet Volume 9.8 fL (7.4-10.4); Nucleated Red Blood Cells % 0.1; Platelet Count 99 10^3/uL (150-450); Red Blood Count 2.53 10^6 /uL (3.70-4.87); Red Cell Distribution Width 17 % (10.5-15)
[2019-01-28 06:39] LABS: Albumin 3.2 g/dL (3.2-5.2); Albumin/Globulin Ratio 1.2 (1-3); BUN/Creatinine Ratio 29.2 (8-20); Calcium 9.7 mg/dL (8.6-10.3); EGFR African American 96.3 (>60); EGFR Non-African American 79.6 (>60); Globulin 2.6 g/dL (2-4); Potassium 4.4 mmol/L (3.5-5.0); Total Protein 5.8 g/dL (6.4-8.9)
[2019-01-28] MEDS: Carbidopa/Levodop 25/100 MG TAB(*) PO SCH ×4 (08:45→21:09)
[2019-01-28] MEDS: Furosemide TAB* 40 MG PO SCH (08:46)
[2019-01-28] MEDS: Magnesium Oxide TAB* 400 MG PO SCH (08:47)
[2019-01-28] MEDS: Losartan TAB* 25 MG PO SCH (08:47)
[2019-01-28] MEDS: Spironolactone TAB* 25 MG PO SCH (08:48)
[2019-01-28] MEDS: Mirabegron (NF) 50 MG TAB PO SCH (09:20)
[2019-01-28] MEDS: Lidocaine Patch REMOVE* 1 NOTE MISC PATCH OFF SCH (10:35)
[2019-01-28] MEDS ORDERED: Cyclobenzaprine TAB* 10 MG PO PRN (16:15)
--- NOTE | 2019-01-28 16:35 | PN ---
Subjective Date of Service: 01/28/19 Interval History: Patient seen and examined. No acute overnight events. Patient is in pain today, complaining of back pain, appears to be spasm like in nature whenever patient is turned in bed or care provided. She had BM last night and this AM. No SOB, no chest pain, remains on O2. Objective Active Medications: Acetaminophen (Tylenol Tab*) 650 mg PO Q4H [facility] Last Admin: 01/28/19 16:12 Dose: 650 mg Al Hydrox/Mg Hydrox/Simethicone (Maalox Plus*) 30 ml PO Q6H PRN PRN Reason: INDIGESTION Albuterol (Ventolin 2.5 Mg/3 Ml Neb.Mily*) 2.5 mg INH [id number] AWAKE PRN PRN Reason: sob/wheezing Albuterol (Ventolin Hfa Inhaler*) 2 puff INH Q4H PRN PRN Reason: SOB/WHEEZING Albuterol/Ipratropium (Duoneb (Albuterol 2.5 Mg/Ipratropium 0.5 Mg)) 1 neb INH [id number] AWAKE PRN PRN Reason: sob/wheexing Calcium Carbonate (Tums*) 500 mg PO Q4H PRN PRN Reason: HEARTBURN Last Admin: 01/26/19 13:07 Dose: 500 mg Carbidopa/Levodopa (Sinemet 25/100 Tab(*)) 1.5 tab PO QID [facility] Last Admin: 01/28/19 16:18 Dose: 1.5 tab Cyclobenzaprine HCl (Flexeril Tab*) 10 mg PO TID PRN PRN Reason: back pain/spasm Duloxetine HCl (Cymbalta Cap*) 40 mg PO BEDTIME [facility] Last Admin: 01/27/19 21:58 Dose: 40 mg Furosemide (Lasix Tab*) 80 mg PO QAM [facility] Last Admin: 01/28/19 08:46 Dose: 80 mg Glycerin (Glycerin Adult Supp*) 1 supp DE DAILY PRN PRN Reason: CONSTIPATION Heparin Sodium (Porcine) (Heparin Vial(*)) 5,000 units SUBCUT Q8HR [facility] Last Admin: 01/28/19 14:02 Dose: 5,000 units Azithromycin 250 mg/ Sodium (Chloride) 250 mls @ 250 mls/hr IVPB Q24H [facility] Last Admin: 01/27/19 18:52 Dose: 250 mls/hr Ceftriaxone Sodium 1 gm/ (Sodium Chloride) 50 mls @ 200 mls/hr IVPB Q24H [facility] Last Admin: 01/27/19 18:06 Dose: 200 mls/hr Lactulose (Lactulose*) 30 ml PO BID [facility] Last Admin: 01/28/19 08:46 Dose: 30 ml Latanoprost (Xalatan 0.005%*) 1 drop BOTH EYES BEDTIME [facility] Last Admin: 01/27/19 22:00 Dose: 1 drop Lidocaine (Lidoderm 5% Patch*) 1 patch TRANSDERM Q24H [facility] Last Admin: 01/27/19 21:59 Dose: 1 patch Losartan Potassium (Cozaar Tab*) 50 mg PO DAILY [facility] Last Admin: 01/28/19 08:47 Dose: 50 mg Magnesium Hydroxide (Milk Of Magnesia Liq*) 30 ml PO Q4H PRN PRN Reason: CONSTIPATION Last Admin: 01/27/19 15:33 Dose: 30 ml Magnesium Hydroxide (Milk Of Magnesia Liq*) 30 ml PO Q72HR PRN PRN Reason: CONSTIPATION Magnesium Oxide (Magox 400 Tab*) 400 mg PO QAM [facility] Last Admin: 01/28/19 08:47 Dose: 400 mg Mirabegron (Myrbetriq (Nf)) 50 mg PO DAILY [facility] Last Admin: 01/28/19 09:20 Dose: Not Given Pantoprazole Sodium (Protonix Tab*) 40 mg PO DAILY PRN PRN Reason: HEARTBURN Pharmacy Profile Note (Lidocaine Patch Remove*) 1 note PATCH OFF 0900 [facility] Last Admin: 01/28/19 10:35 Dose: 1 note Simethicone (Mylicon Tab*) 80 mg PO Q4HR PRN PRN Reason: Gas Last Admin: 01/27/19 11:35 Dose: 80 mg Spironolactone (Aldactone Tab*) 25 mg PO DAILY [facility] Last Admin: 01/28/19 08:48 Dose: 25 mg Vital Signs - 8 hr 01/28/19 01/28/19 01/28/19 08:44 11:32 14:38 Temperature 97.4 F 98.2 F Pulse Rate 105 88 Respiratory 24 18 24 Rate Blood Pressure 148/82 146/69 (mmHg) O2 Sat by Pulse 98 98 Oximetry 01/28/19 16:24 Temperature Pulse Rate Respiratory 28 Rate Blood Pressure (mmHg) O2 Sat by Pulse Oximetry Oxygen Devices in Use Now: Nasal Cannula Appearance: alert, NAD Eyes: PERRLA Ears/Nose/Mouth/Throat: NL Teeth, Lips, Gums, Mucous Membranes Moist Neck: NL Appearance and Movements; NL JVP, Trachea Midline Respiratory: - - shallow respirations, no wheeze, no rales or rhonchi Cardiovascular: NL Sounds; No Murmurs; No JVD, No Edema Abdominal: - - obese, distended, pos BSx4 Extremities: No Edema, No Clubbing, Cyanosis Skin: No Rash or Ulcers Neurological: - - Confused Nutrition: Taking PO's Result Diagrams: 01/28/19 05:32 01/28/19 05:32 Microbiology and Other Data: Microbiology 01/25/19 15:27 Aerobic Blood Culture - Preliminary Blood Venous No Growth Day 1 Anaerobic Blood Culture - Preliminary No Growth Day 1 01/25/19 16:16 Aerobic Blood Culture - Preliminary Blood Venous No Growth Day 1 Anaerobic Blood Culture - Preliminary No Growth Day 1 01/25/19 22:17 Nasal Screen MRSA (PCR) - Final Nasal Mrsa Not Detected Diagnostic Imaging: Patient Name: CAREY CLAUDIO Medical Record#: [id number] Ordering Physician: Liss Anand NP Acct.#: [id number] : 1945 Age: 73 Sex: F Location: [address] [place] [address]/TELEMETRY Exam Date: 01/27/19 1518 ADM Status: ADM IN Order Information: ABDOMEN (COMPLETE) 2 [facility] Accession Number: [id number] CPT: 42110 Indication: Abdominal pain. Comparison: June 17, 2013 CT. Technique: Supine and upright views of the abdomen. Report: Obesity limits image quality. No visualized free air beneath the diaphragm. Moderately severe distention of the rectum with formed stool and gas. Mild gas distention of the transverse colon. No dilated small bowel loops evident. No suspicious calcifications or mass effect evident. IMPRESSION: #. Limited exam due to obese body habitus without visualized abdominal pelvic pathologic process evident. Patient Name: CAREY CLAUDIO Medical Record#: [id number] Ordering Physician: Yakov Bello MD Acct.#: [id number] : 1945 Age: 73 Sex: F Location: EMERGENCY DEPARTMENT Exam Date: 01/25/19 1527 ADM Status: REG ER Order Information: CHEST AP OR PORT Accession Number: [id number] CPT: 37601 HISTORY: SOB COMPARISONS: January 23, 2019 VIEWS: 1: frontal AP view of the chest at 3:45 PM FINDINGS: LINES AND TUBES: None. CARDIOMEDIASTINAL SILHOUETTE: The cardiomediastinal silhouette is stable. PLEURA: There is blunting of left costophrenic angle. LUNG PARENCHYMA: There is prominence of the central pulmonary vasculature. There is confluent alveolar opacification of the left lung base. ABDOMEN: The upper abdomen is clear. There is no subphrenic gas. BONES AND SOFT TISSUES: No bone or soft tissue abnormalities are noted. IMPRESSION: 1. LEFT BASILAR ATELECTASIS VERSUS CONSOLIDATION WITH A SMALL LEFT PLEURAL EFFUSION. 2. PULMONARY VASCULAR CONGESTION. *[facility]* [place] [address] Fax #: [phone] Transthoracic Echocardiogram Patient: [place], Height: 60 in / Carey A 152.4 cm : 1945 Weight: 223.5 lb / Study Date: 01/26/2019 101.6 kg Age: 73 BP: 137 / 56 Gender: F BMI/BSA: 43.7 kg/m^2 HR: 110 bpm / 1.96 m^2 *[employer] Administrator: * Samantha Glynn RDCS RN *Referring Physician: * Lizz Scruggs *Reading Physician: * Tai Morton MD Indications: Congestive Heart Failure. History: Congestive heart failure. Risk factors: Hypertension. Obese. Dyslipidemia. Chronic pleural effusion. Conclusions Summary: 1. Left ventricle: Systolic function is hyperdynamic. The estimated ejection fraction is 65-70%. Systolic function is unchanged from the study of 07/02/2015. There is dynamic obstruction with left ventricular outflow tract turbulence and increased velocities. Wall motion is normal; there are no regional wall motion abnormalities. 2. Mitral valve: There is mild regurgitation. 3. Aortic valve: The annulus is mildly calcified. The valve is trileaflet. The leaflets are mildly thickened. There is no evidence of stenosis. There is calcified structure in the left ventricle outflow tract causing turbulence and mild obstruction The small calcified structure is new comapred to previous study. 4. Tricuspid valve: There is mild regurgitation. The peak RV-RA systolic gradient is 49 mm Hg. 5. Pericardium, extracardiac: There is no pericardial effusion. There is a left pleural effusion. 6. Pulmonary arteries: Systolic pressure is moderately to severely increased. Pulmonary artery pressure has increased from the study of 07/02/2015. Assess/Plan/Problems-Billing Assessment: This is a 73 year old female with multiple comorbid conditions that resides in [facility] that presents in the ED with reports of cough and SOB, admitted for CAP and acute on chronic HF. - Patient Problems (1) CAP (community acquired pneumonia) Code(s): J18.9 - PNEUMONIA, UNSPECIFIED ORGANISM SNOMED Code(s): 186506516 Comment: - consolidation with pleural effusion as noted on CXR above - Continue azithromycin and ceftriaxone - Follow cultures, NTD - Nebs PRN (2) Acute exacerbation of congestive heart failure Code(s): I50.9 - HEART FAILURE, UNSPECIFIED SNOMED Code(s): 30338845 Comment: - Diastolic dysfunction and pulmonary HTN noted on ECHO (no change from previous) - Pulmonary vascular congestion on CXR above with mildly elevated BNP - Continue diuresis - Supplemental O2, sats are adequate, RR increased but patient in significant pain today - Strict I&Os, low sodium diet (3) Back pain Code(s): M54.9 - DORSALGIA, UNSPECIFIED SNOMED Code(s): 947598709 Comment: - Long discussion with patient's daughter who reports that patient fell multiple times at the long term - Increased respiratory rate seems more related to pain, rather than pulmonary origin - ER record shows that patient presented on 01/23 after a fall, no acute fractures noted at that time - Tramadol does not seem to be helping her pain last 24h and she has allergy to morphine - Will trial flexeril for pain and spasms and monitor for effect (4) Dementia Code(s): F03.90 - UNSPECIFIED DEMENTIA WITHOUT BEHAVIORAL DISTURBANCE SNOMED Code(s): 02796061 Comment: - No agitation, continue supportive care (5) Liver cirrhosis Priority: Medium Onset Date: 06/30/15 Comment: - Abdominal distension today and appears more uncomfortable - Xray abdomen as above, no acute findings, does appear constipated - LFTs normal - Ammonia slightly elevated, but not far from baseline - continue spironolactone - continue bowel regimen, will add fleet enema today (6) Constipation Code(s): K59.00 - CONSTIPATION, UNSPECIFIED SNOMED Code(s): 19472097 Comment: - Was not responding to bowel regimen initially - Had fleet enema yesterday with good response - Xray with no obstruction - Likely cause medications (sinemet, tramadol), monitor stools (7) Pancytopenia Code(s): D61.818 - OTHER PANCYTOPENIA SNOMED Code(s): 250891884 Comment: - Chronic, currently at baseline 2/2 liver disease, H&H stable (8) Parkinson disease Code(s): G20 - PARKINSON'S DISEASE SNOMED Code(s): 10812296 Comment: - Continue sinemet (9) DVT prophylaxis Code(s): WMN5269 - SNOMED Code(s): 961424310 Comment: - HSQ (10) DNR (do not resuscitate) Status and Disposition: Inpatient for IV atbx and diuresis and pain control. Anticipate DC back to [facility] in 1-2 days. Patient's family dissatisfied with [facility], placed consult for for assist with application to [facility]. Daughter Glory is aware that mother will likely have to go back to [facility] after discharge before she can make arrangements to change to another facility.
[2019-01-28] MEDS: cefTRIAXone(*) 1 GM in NS 0.9% 50 ML* 50 ML IVPB SCH (17:35)
[2019-01-28] MEDS: Azithromycin IV(*) 250 MG in NS 0.9% 250 ML* 250 ML IVPB SCH (18:32)
[2019-01-28] MEDS: DULoxetine DR CAP* 20 MG CAP.DR PO SCH (21:08)
[2019-01-28] MEDS: Latanoprost 0.005%* 2.5 ml BTL BOTH EYES SCH (21:08)
[2019-01-28] MEDS: Lidocaine PATCH 5%* 1 PATCH TRANSDERM SCH (21:11)
[2019-01-29] MEDS: Acetaminophen TAB* 325 MG PO SCH ×6 (03:51→21:45)
[2019-01-29] MEDS: Heparin VIAL(*) 5000 UNITS/ML VIAL (FIVE THOUSAND) SUBCUT SCH ×3 (05:33→21:45)
[2019-01-29] MEDS: Magnesium Oxide TAB* 400 MG PO SCH (08:20)
[2019-01-29] MEDS: Losartan TAB* 25 MG PO SCH (08:21)
[2019-01-29] MEDS: Carbidopa/Levodop 25/100 MG TAB(*) PO SCH ×4 (08:22→20:39)
[2019-01-29] MEDS: Furosemide TAB* 40 MG PO SCH (08:23)
[2019-01-29] MEDS: Spironolactone TAB* 25 MG PO SCH (08:23)
[2019-01-29] MEDS: Lidocaine Patch REMOVE* 1 NOTE MISC PATCH OFF SCH (08:27)
[2019-01-29] MEDS: Mirabegron (NF) 50 MG TAB PO SCH (08:27)
[2019-01-29] MEDS ORDERED: Spironolactone TAB* 25 MG PO SCH (10:00)
[2019-01-29 10:18] LABS: ABS Lymphocytes 0.3 10^3/ul (1.0-4.8); ABS Monocytes 0.5 10^3/ul (0-0.8); ABS Neutrophils 6.6 10^3/ul (1.5-7.7); Eosinophil % 0.1 %; Hematocrit 30 % (35-47); Hemoglobin 9.5 g/dL (12.0-16.0); Lymphocyte % 4.4 %; Mean Corpuscular HGB Conc 32 g/dL (31-36); Mean Corpuscular Hemoglobin 34 pg (27-31); Mean Corpuscular Volume 106 fL (80-97); Mean Platelet Volume 9.5 fL (7.4-10.4); Platelet Count 112 10^3/uL (150-450); Red Blood Count 2.78 10^6 /uL (3.70-4.87); Red Cell Distribution Width 17 % (10.5-15); White Blood Count 7.5 10^3/uL (3.5-10.8)
[2019-01-29 10:27] LABS: Albumin 3.4 g/dL (3.2-5.2); Albumin/Globulin Ratio 1.3 (1-3); BUN/Creatinine Ratio 28.9 (8-20); Calcium 10.2 mg/dL (8.6-10.3); EGFR African American 81.8 (>60); EGFR Non-African American 67.6 (>60); Globulin 2.7 g/dL (2-4); Potassium 4.5 mmol/L (3.5-5.0); Total Bilirubin 2.5 mg/dL (0.2-1.0); Total Protein 6.1 g/dL (6.4-8.9)
[2019-01-29] MEDS ORDERED: Lorazepam PYXIS KEY PRN ×2 (10:47→15:27)
[2019-01-29] MEDS ORDERED: LORazepam INJ* 2 MG/ML 1 ML VIAL IV PUSH ONE ×2 (10:47→18:00)
--- NOTE | 2019-01-29 10:55 | PN ---
Subjective Date of Service: 01/29/19 Interval History: At time of evaluation, patient mostly answers questions inappropriately but does state she "feels yucky" and is able to localize this to her abdomen. She denies chest pain. Otherwise does not appropriately answer if she feels fever/ chills, dyspnea, cough. Later, patient calling out, son at bedside. At this time, patient states her pain is "all over" which is reportedly what has occurred during every day of her hospital admission. Objective Active Medications: Acetaminophen (Tylenol Tab*) 650 mg PO Q4H [facility] Last Admin: 01/29/19 10:16 Dose: Not Given Al Hydrox/Mg Hydrox/Simethicone (Maalox Plus*) 30 ml PO Q6H PRN PRN Reason: INDIGESTION Albuterol (Ventolin 2.5 Mg/3 Ml Neb.Mily*) 2.5 mg INH [id number] AWAKE PRN PRN Reason: sob/wheezing Albuterol (Ventolin Hfa Inhaler*) 2 puff INH Q4H PRN PRN Reason: SOB/WHEEZING Albuterol/Ipratropium (Duoneb (Albuterol 2.5 Mg/Ipratropium 0.5 Mg)) 1 neb INH [id number] AWAKE PRN PRN Reason: sob/wheexing Last Admin: 01/28/19 17:19 Dose: 1 neb Calcium Carbonate (Tums*) 500 mg PO Q4H PRN PRN Reason: HEARTBURN Last Admin: 01/26/19 13:07 Dose: 500 mg Carbidopa/Levodopa (Sinemet 25/100 Tab(*)) 1.5 tab PO QID [facility] Last Admin: 01/29/19 08:22 Dose: 1.5 tab Cyclobenzaprine HCl (Flexeril Tab*) 10 mg PO TID PRN PRN Reason: back pain/spasm Last Admin: 01/28/19 23:23 Dose: 10 mg Duloxetine HCl (Cymbalta Cap*) 40 mg PO BEDTIME [facility] Last Admin: 01/28/19 21:08 Dose: 40 mg Furosemide (Lasix Tab*) 80 mg PO QAM [facility] Last Admin: 01/29/19 08:23 Dose: 80 mg Glycerin (Glycerin Adult Supp*) 1 supp MI DAILY PRN PRN Reason: CONSTIPATION Heparin Sodium (Porcine) (Heparin Vial(*)) 5,000 units SUBCUT Q8HR [facility] Last Admin: 01/29/19 05:33 Dose: 5,000 units Azithromycin 250 mg/ Sodium (Chloride) 250 mls @ 250 mls/hr IVPB Q24H [facility] Last Admin: 01/28/19 18:32 Dose: 250 mls/hr Ceftriaxone Sodium 1 gm/ (Sodium Chloride) 50 mls @ 200 mls/hr IVPB Q24H [facility] Last Admin: 01/28/19 17:35 Dose: 200 mls/hr Lactulose (Lactulose*) 30 ml PO BID [facility] Last Admin: 01/29/19 08:20 Dose: 30 ml Latanoprost (Xalatan 0.005%*) 1 drop BOTH EYES BEDTIME [facility] Last Admin: 01/28/19 21:08 Dose: 1 drop Lidocaine (Lidoderm 5% Patch*) 1 patch TRANSDERM Q24H [facility] Last Admin: 01/28/19 21:11 Dose: 1 patch Lorazepam (Ativan Inj*) 1 mg IV PUSH UC ONCE ONE Stop: 01/29/19 10:48 Losartan Potassium (Cozaar Tab*) 50 mg PO DAILY [facility] Last Admin: 01/29/19 08:21 Dose: 50 mg Magnesium Hydroxide (Milk Of Magnesia Liq*) 30 ml PO Q4H PRN PRN Reason: CONSTIPATION Last Admin: 01/27/19 15:33 Dose: 30 ml Magnesium Hydroxide (Milk Of Magnesia Liq*) 30 ml PO Q72HR PRN PRN Reason: CONSTIPATION Magnesium Oxide (Magox 400 Tab*) 400 mg PO QAM [facility] Last Admin: 01/29/19 08:20 Dose: 400 mg Mirabegron (Myrbetriq (Nf)) 50 mg PO DAILY [facility] Last Admin: 01/29/19 08:27 Dose: Not Given Miscellaneous (Ativan Pyxis Ochoa) 1 ea N/A .ATIVAN IV OCHOA PRN PRN Reason: PYXIS OCHOA Pantoprazole Sodium (Protonix Tab*) 40 mg PO DAILY PRN PRN Reason: HEARTBURN Pharmacy Profile Note (Lidocaine Patch Remove*) 1 note PATCH OFF 0900 [facility] Last Admin: 01/29/19 08:27 Dose: 1 note Simethicone (Mylicon Tab*) 80 mg PO Q4HR PRN PRN Reason: Gas Last Admin: 01/27/19 11:35 Dose: 80 mg Spironolactone (Aldactone Tab*) 50 mg PO DAILY [facility] Last Admin: 01/29/19 10:10 Dose: 50 mg Vital Signs - 8 hr 01/29/19 01/29/19 01/29/19 03:32 08:00 08:32 Temperature 97.5 F 97.8 F Pulse Rate 103 112 Respiratory 22 20 20 Rate Blood Pressure 146/65 146/62 (mmHg) O2 Sat by Pulse 98 94 94 Oximetry Oxygen Devices in Use Now: Nasal Cannula Appearance: At time of initial evaluation, Obese, elderly female, laying comfortably in hospital bed, appearing in NAD Eyes: No Scleral Icterus, PERRLA Ears/Nose/Mouth/Throat: Mucous Membranes Moist Neck: NL Appearance and Movements; NL JVP Respiratory: Symmetrical Chest Expansion and Respiratory Effort, - - Respirations are audible rhoncherous without auscultation; anterior auscultation with rhonchi throughout Cardiovascular: NL Sounds; No Murmurs; No JVD, RRR Abdominal: - - Minimal abdominal distension in upper quadrants, normoactive BS x4 quadrants; no evident tenderness to palpation, no guarding Extremities: No Clubbing, Cyanosis, - - +1 pitting edema bilateral LEs pretibially Skin: No Rash or Ulcers Neurological: NL Muscle Strength and Tone, - - Patient is alert and oriented to self only; no asterixis Result Diagrams: 01/29/19 09:43 01/29/19 09:43 Microbiology and Other Data: Microbiology 01/25/19 15:27 Aerobic Blood Culture - Preliminary Blood Venous No Growth Day 1 Anaerobic Blood Culture - Preliminary No Growth Day 1 01/25/19 16:16 Aerobic Blood Culture - Preliminary Blood Venous No Growth Day 1 Anaerobic Blood Culture - Preliminary No Growth Day 1 01/25/19 22:17 Nasal Screen MRSA (PCR) - Final Nasal Mrsa Not Detected Diagnostic Imaging: Patient Name: CAREY CLAUDIO Medical Record#: [id number] Ordering Physician: Liss Anand NP Acct.#: [id number] : 1945 Age: 73 Sex: F Location: [address] [place] [address] MEDICAL/TELEMETRY Exam Date: 01/27/191517 ADM Status: ADM IN Order Information: ABDOMEN (COMPLETE) 2 VWS Accession Number: [id number] CPT: 45721 Indication: Abdominal pain. Comparison: June 17, 2013 CT. Technique: Supine and upright views of the abdomen. Report: Obesity limits image quality. No visualized free air beneath the diaphragm. Moderately severe distention of the rectum with formed stool and gas. Mild gas distention of the transverse colon. No dilated small bowel loops evident. No suspicious calcifications or mass effect evident. IMPRESSION: #. Limited exam due to obese body habitus without visualized abdominal pelvic pathologic process evident. Patient Name: CAREY CLAUDIO Medical Record#: [id number] Ordering Physician: Yakov Bello MD Acct.#: [id number] : 1945 Age: 73 Sex: F Location: EMERGENCY DEPARTMENT Exam Date: 01/25/191526 ADM Status: REG ER Order Information: CHEST AP OR PORT Accession Number: [id number] CPT: 84832 HISTORY: SOB COMPARISONS: January 23, 2019 VIEWS: 1: frontal AP view of the chest at 3:45 PM FINDINGS: LINES AND TUBES: None. CARDIOMEDIASTINAL SILHOUETTE: The cardiomediastinal silhouette is stable. PLEURA: There is blunting of left costophrenic angle. LUNG PARENCHYMA: There is prominence of the central pulmonary vasculature. There is confluent alveolar opacification of the left lung base. ABDOMEN: The upper abdomen is clear. There is no subphrenic gas. BONES AND SOFT TISSUES: No bone or soft tissue abnormalities are noted. IMPRESSION: 1. LEFT BASILAR ATELECTASIS VERSUS CONSOLIDATION WITH A SMALL LEFT PLEURAL EFFUSION. 2. [place] [address] Fax #: [phone] Transthoracic Echocardiogram Patient: [place] Height: 60 in / Carey Smart 152.4 cm : 1945 Weight: 223.5 lb / Study Date: 01/26/2019 101.6 kg Age: 73 BP: 137 / 55 Gender: F BMI/BSA: 43.7 kg/m^2 HR: 110 bpm / 1.96 m^2 *Supervisory Examiner: * Samantha Glynn RDCS RN *Referring Physician: * Lizz Scruggs *Reading Physician: * Tai Morton MD Indications: Congestive Heart Failure. History: Congestive heart failure. Risk factors: Hypertension. Obese. Dyslipidemia. Chronic pleural effusion. Conclusions Summary: 1. Left ventricle: Systolic function is hyperdynamic. The estimated ejection fraction is 65-70%. Systolic function is unchanged from the study of 07/02/2015. There is dynamic obstruction with left ventricular outflow tract turbulence and increased velocities. Wall motion is normal; there are no regional wall motion abnormalities. 2. Mitral valve: There is mild regurgitation. 3. Aortic valve: The annulus is mildly calcified. The valve is trileaflet. The leaflets are mildly thickened. There is no evidence of stenosis. There is calcified structure in the left ventricle outflow tract causing turbulence and mild obstruction The small calcified structure is new comapred to previous study. 4. Tricuspid valve: There is mild regurgitation. The peak RV-RA systolic gradient is 49 mm Hg. 5. Pericardium, extracardiac: There is no pericardial effusion. There is a left pleural effusion. 6. Pulmonary arteries: Systolic pressure is moderately to severely increased. Pulmonary artery pressure has increased from the study of 07/02/2015. Assess/Plan/Problems-Billing Assessment: This is a 73 year old female with multiple comorbid conditions that resides in [facility] that presents in the ED with reports of cough and SOB, admitted for CAP and acute on chronic HF. - Patient Problems (1) Pleural effusion Code(s): J90 - PLEURAL EFFUSION, NOT ELSEWHERE CLASSIFIED SNOMED Code(s): 90537904 Comment: -shortly after returning from paracentesis, patient developed tachypnea and was diaphragmatically breathing; O2 sat 98% on 3L -patient was tachycardic to 112 this morning -ordered CTA chest to r/o PE; no evidence of PE but large left pleural effusion evident in addition to cardiomegaly, enlargement of pulmonary artery, cirrhotic liver, splenomegaly, and ascites -ABG normal -family would like to pursue thoracentesis; Dr. Hamilton plans to perform tomorrow -unclear etiology, possibly diastolic CHF though is low grade and is isolated to left side, possibly ascites; ruled out pancreatitis as a cause with normal lipase; possibility of malignancy as well -lactic acid wnl -diuresing with spironolactone and lasix (2) Ascites Code(s): R18.8 - OTHER ASCITES SNOMED Code(s): 420771090 Comment: -abdomen US this morning with large ascites -paracentesis performed by Dr. Barker today, removed 5.5 L fluid; awaiting peritoneal fluid albumin, cytology, and culture; peritoneal neutrophils=5 and therefore low concern for SBP -That being said, patient has been treated with ceftriaxone and azithromycin for pneumonia therefore culture will be of low utility for diagnosing possible SBP -albumin 25% administered due to large volume paracentesis, consent obtained by healthcare proxy (daughter, Glory) -diuresing with spironolactone and lasix (3) Decompensated liver disease Code(s): K74.69 - OTHER CIRRHOSIS OF LIVER SNOMED Code(s): 31479992 Comment: -ascites as described above -LFTs reamin normal; Ammonia slightly elevated, but not far from baseline; total bili minimally elevated to 2.5, though her baseline appears around 2.0 -increased spironolactone to receive 75 mg total today, will increase to 100 tomorrow -continue low sodium diet, lasix, and lactulose -unclear etiology of liver cirrhosis though likely CLEMENT as patient without prior alcohol use and previous hep c negative -MELD score of 14 indicating 6% estimated 3 month mortality (4) Acute exacerbation of congestive heart failure Onset Date: 06/30/15 Code(s): I50.9 - HEART FAILURE, UNSPECIFIED SNOMED Code (s): 99232203 Comment: - Diastolic dysfunction and pulmonary HTN noted on ECHO (no change from previous ) - Pulmonary vascular congestion on CXR above with mildly elevated BNP - Continue diuresis - Supplemental O2, sats are adequate, RR increased but patient in significant pain today - Strict I&Os, low sodium diet - Unlikely to be contributing to pleural effusion due to low grade diastolic dysfunction but remains on the differential (5) CAP (community acquired pneumonia) Code(s): J18.9 - PNEUMONIA, UNSPECIFIED ORGANISM SNOMED Code(s): 541051692 Comment: - consolidation with pleural effusion as noted on CXR above, though appears that this left sided consolidation is truly a pleural effusion per CTA today; however per my read there does appear to be consolidation in right lung, radiology commented airspace disease - Continue azithromycin and ceftriaxone - Follow cultures, NTD - Nebs PRN - will reevaluate for possible need for pseudomonas coverage if little improvement after thoracentesis - unable to obtain sputum culture from patient as she is unable to follow direction well d/t dementia -ordering urine legionella and strep pneumo antigens (6) Back pain Code(s): M54.9 - DORSALGIA, UNSPECIFIED SNOMED Code(s): 224346832 Comment: - Long discussion with patient's daughter who reports that patient fell multiple times at the intermediate - Increased respiratory rate seems more related to pain, rather than pulmonary origin - ER record shows that patient presented on 01/23 after a fall, no acute fractures noted at that time - restarting home tramadol and discontinuing flexiril as this did not appear to provide more comfort (7) Constipation Code(s): K59.00 - CONSTIPATION, UNSPECIFIED SNOMED Code(s): 30637751 Comment: - resolved (8) Dementia Code(s): F03.90 - UNSPECIFIED DEMENTIA WITHOUT BEHAVIORAL DISTURBANCE SNOMED Code(s): 50910527 Comment: -agitation frequently today, prn ativan ordered and did provide comfort (9) Pancytopenia Onset Date: 06/30/15 Code(s): D61.818 - OTHER PANCYTOPENIA SNOMED Code(s): 931854131 Comment: - Chronic, currently at baseline 2/2 liver disease, H&H stable (10) Parkinson disease Code(s): G20 - PARKINSON'S DISEASE SNOMED Code(s): 71800481 Comment: - Continue sinemet (11) DNR (do not resuscitate) (12) DVT prophylaxis Onset Date: 06/30/15 Code(s): UNQ9499 - SNOMED Code(s): 889092220 Comment: HSQ Status and Disposition: Given worsening clinical picture, discussed goals of care with daughterGlory , who is the healthcare proxy. She would like to follow the guidance of the patient's written healthcare proxy, however this is primarily limited to withholding "heroic measures." At this time, daughter and son would like to continue pursuing medical management, and agree to thoracentesis for both diagnostic and therapeutic methods.
[2019-01-29 12:40] LABS: Body Fluid Source Peritonial Fluid
[2019-01-29] MEDS ORDERED: Iodixanol* (CONTRAST) 320 MG/ML 100 ML SDV IV ONE (13:42)
[2019-01-29 13:46] LABS: Body Fluid Mono 31 %; Body Fluid Other Cells 15
[2019-01-29] MEDS ORDERED: Albumin Human 25%* 25 GM/100 ML BTL IV ONE (15:00)
[2019-01-29] MEDS: LORazepam INJ* 2 MG/ML 1 ML VIAL IV PUSH PRN ×2 (15:39→21:30)
[2019-01-29] MEDS: cefTRIAXone(*) 1 GM in NS 0.9% 50 ML* 50 ML IVPB SCH (18:03)
[2019-01-29] MEDS: Azithromycin IV(*) 250 MG in NS 0.9% 250 ML* 250 ML IVPB SCH (18:25)
[2019-01-29] MEDS ORDERED: traMADol TAB* 50 MG PO PRN (18:29)
[2019-01-29] MEDS: DULoxetine DR CAP* 20 MG CAP.DR PO SCH (20:46)
[2019-01-29] MEDS: Lidocaine PATCH 5%* 1 PATCH TRANSDERM SCH (20:49)
[2019-01-29] MEDS: Latanoprost 0.005%* 2.5 ml BTL BOTH EYES SCH (20:51)
[2019-01-29] MEDS ORDERED: Morphine 4 MG/ML VIAL (1 ml) 4 MG/ML VIAL IV PRN (23:53)
[2019-01-29] MEDS ORDERED: Morphine 4 MG/ML VIAL (1 ml) 4 MG/ML VIAL ONE (23:58)
[2019-01-30] MEDS ORDERED: Furosemide IV* 10 MG/ML 10 ML VIAL (100 MG) IV ONE
--- NOTE | 2019-01-30 00:07 | PN ---
Progress Note - Progress Note Date of Service: 01/30/19 Note: Event Note: Called to patient's bedside, due to tachypnea, 35-40/min, O2 sat down to 84%, despite being placed on 100% face mask O2. She is 73 year old woman w/ pleural effusions, ascites, she is DNR. Patient cannot speak, is in severe respiratory distress Will give morphine, IV lasix Son Violeta notified that she may tonight, he will come to see her. Will monitor closely.
[2019-01-30] MEDS: LORazepam INJ* 2 MG/ML 1 ML VIAL IV PUSH PRN ×2 (01:30→04:17)
--- NOTE | 2019-01-30 01:41 | OP ---
DATE OF OPERATION: 01/29/19 - ROOM #450 DATE OF : 47 SURGEON: Mathew Barker MD. OFFENSIVE COORDINATOR: None. ANESTHESIA: 1% lidocaine with epinephrine. PRE-OP DIAGNOSIS: Cirrhosis with ascites. POST-OP DIAGNOSIS: Cirrhosis with ascites. OPERATIVE PROCEDURE: Paracentesis with an 8-English paracentesis catheter. ESTIMATED BLOOD LOSS: Trace. SPECIMEN: Ascitic fluid for culture, cytology, as well as cell count per hospitalist orders. WOUND CLASSIFICATION: I. ASA CLASSIFICATION: IV E. INDICATION: Carey Brink a 73-year-old woman with multiple medical issues including dementia and cirrhosis, noted to have ascites and marked abdominal distention. She was admitted with abdominal pain and a paracentesis has been requested by the hospitalist service for both diagnosis as well as therapeutic purposes. The patient was not able to give consent, but I discussed the procedure and care with her , who gave his written consent. The risks of, but not limited to, bleeding, infection, intraabdominal abscess formation, injury to visceral organs with resultant sepsis/abscess, peritonitis, and even were all explained. DESCRIPTION OF PROCEDURE: The patient had undergone a formal ultrasound in Radiology which showed a large amount of ascites, more so on the left than the right. She was placed in the sitting semi-upright position. The abdomen was marked with indelible ink. Time-out verification was completed. The left abdomen was prepped and draped in the usual sterile fashion. An ultrasound probe was placed over an area on the left mid abdomen, which showed significant amount of fluid just under the abdominal wall. 1% lidocaine with epinephrine was infiltrated through the entire abdominal wall , and using a 21-gauge needle, yellow ascitic fluid was aspirated. Next, a small brayan was made in the skin and the 8-English paracentesis catheter was then passed through the abdominal wall until it aspirated yellow straw- colored ascitic fluid. The needle was removed and the catheter was placed intraabdominally, and approximately 5-1/2 L of straw-colored slightly cloudy ascitic fluid was drained without difficulty. Separate specimens were sent for the ordered studies. Once this was complete, the catheter was removed and pressure was held over the puncture site. A sterile Band-Aid was then placed. Hemostasis was assured. The patient tolerated the procedure well, was taken back to her floor bed in stable condition. [id number]/[facility] #: [id number] [place]
[2019-01-30] MEDS: Morphine 10 MG/ML VIAL (1 ml) IV PRN ×2 (02:32→05:32)
[2019-01-30] MEDS: Acetaminophen TAB* 325 MG PO SCH ×2 (03:18→07:10)
[2019-01-30 04:35] VITALS: BP 90/60
[2019-01-30] MEDS: Heparin VIAL(*) 5000 UNITS/ML VIAL (FIVE THOUSAND) SUBCUT SCH (05:27)
[2019-01-30] MEDS ORDERED: Acetaminophen SUPP* 650 MG SUPP PR PRN (07:32)
[2019-01-30] MEDS ORDERED: Atropine 1% (ORAL/SL)* 15 ML BTL SL PRN (07:33)
--- NOTE | 2019-01-30 21:33 | DS ---
CC: Dr. Arthur Murphy * DISCHARGE SUMMARY/ SUMMARY: DATE OF ADMISSION: 01/25/19 DATE OF : 01/30/19 PRIMARY CARE PHYSICIAN: Dr. Arthur Murphy. ATTENDING PHYSICIAN: Dr. Shelley Dawkins * (dictated by Ros Huntley NP). CAUSE OF : 1. Acute on chronic diastolic congestive heart failure. 2. Community-acquired pneumonia. 3. Decompensated liver disease with resulting ascites and pleural effusions. 4. Sepsis. SECONDARY DIAGNOSES: 1. Dementia. 2. Parkinson disease. STUDIES WHILE IN THE HOSPITAL: 1. Chest x-ray on 01/25/19, read as left basilar atelectasis versus consolidation versus small left pleural effusion. Pulmonary vascular congestion. 2. EKG on 01/25/19 showed sinus tachycardia with a rate of 107, QTc 436. 3. Transthoracic echocardiogram on 01/26/19 read as left ventricular systolic function was hyperdynamic. The estimated ejection fraction was 55% to 70%. Systolic function was unchanged from the study from 2015. Mild mitral regurgitation. Aortic valve was mildly calcified without evidence of stenosis. There was mild tricuspid regurgitation. There was no pericardial effusion. There was a left pleural effusion. [id number] pulmonary hypertension, which had increased from a study from 2015. 4. EKG on 01/26/19 read as sinus tachycardia with a rate of 108, QTc 444. 5. Abdomen x-ray on 01/27/19 read as limited exam due to obese body habitus without visualized abdominal pelvic pathologic process. 6. Abdomen ultrasound on 01/29/19 read as ascites. Cirrhotic liver. 7. EKG on 01/29/19 showed sinus tachycardia with a rate of 116, QTc of 423. 8. Chest thorax CTA on 01/29/19 read as limited study secondary to extensive patient motion artifact. Within the limitations of the study, there was no pulmonary arterial filling defect to suggest pulmonary embolism. There was near complete compressive atelectasis of the left lower lobe secondary to the large pleural effusion. Cardiomegaly. Enlargement of the pulmonary artery suggestive of pulmonary arterial hypertension. Multifocal airspace disease throughout the right lung. Cirrhotic liver with splenomegaly suggestive of portal hypertension. Ascites. PROCEDURES WHILE IN THE HOSPITAL: Paracentesis on 01/29/[address] Barker, a total of 5.5 L of straw-colored, slightly cloudy ascitic fluid was drained without difficulty. HISTORY OF PRESENT ILLNESS AND HOSPITAL COURSE: Ms. Brink was a 73-year-old female with past medical history of dementia, CHF, Parkinson's, cirrhosis, diabetes, hypothyroidism, anemia, and fibromyalgia, who presented to the emergency room on 01/25/19 with complaints of shortness of breath and fever. Please see the history and physical by Lizz Scruggs NP for complete summary of the events leading up to this hospitalization. In short, the patient came in with her daughter and at that point was complaining of wheezing , fever, dysuria, edema, and back pain. The patient was noted to have 2 falls recently, for which she presented to this emergency room. She had imaging as noted above, and because of the concern for pneumonia, the patient was admitted by the hospitalist service. She was started on azithromycin and ceftriaxone for coverage of community- acquired pneumonia. She was also felt to have an acute on chronic congestive heart failure exacerbation and she was diuresed with Lasix. The patient did meet sepsis criteria with tachycardia and tachypnea with pneumonia being the source. Troponin was elevated due to demand ischemia. The patient was noted to have increasing abdominal distention and so underwent a paracentesis on 01/29, at which point 5.5 L of fluid was drained. At that point, there was consideration of a thoracentesis for the following day. On 01/29/19, the hospitalist covering the patient did speak with the patient's daughter Glory, the healthcare proxy, to discuss goals of care. At that point, the daughter and son were interested in continuing to pursue medical management. On the overnight that night, the patient was noted to decompensate and had tachypnea with a respiratory rate of 35 to 40 breaths per minute, her oxygen saturation was down to 84% despite being on unknown amount of oxygen. She was given morphine and IV Lasix. The community relations manager spoke with the patient's family and advised them that the patient may overnight due to her acute decompensation. This morning, I did go up and speak with the patient's family. There was a large number of family members present, and at that point, the family was agreeable to pursue comfort care and stopping any medical treatment. The patient was requiring 15 L of oxygen to maintain her saturation and she remained tachypneic at that point. I answered all the family's questions and concerns regarding comfort care and the patient's prognosis and they were all accepting at that point. Approximately 10 minutes after my conversation with the family, the patient was noted to on 01/30/19 at 7:30 a.m. She was still on telemetry monitoring at this point, so the time of was accurate. The family had no further questions or concerns for me. DISCHARGE CONDITION: . DISCHARGE DISPOSITION: . This is a summarized report of a complex medical history and hospital stay. For further details, please see the entire medical record. TIME SPENT: Approximately 45 minutes were spent on the discharge of this patient. ROS HUNTLEY, LAB RN [id number]/[facility] #: [id number] [place]
== END 2019-01-30 07:38 | disposition expired | DRG 871 ==
LOC: SUPCPDRO 15:13 → ED 15:13 → MEDTELE 18:13 → OBSVTOIN 01-26 14:00 → MEDTELE 01-30 03:54
PROVIDERS: ADMIT Hospitalist; ATTEND Hospitalist
PROC: 0W9G3ZZ Drainage of Peritoneal Cavity, Percutaneous Approach (ICD-10-PCS; principal; 2019-01-29 11:00)
DX: A41.9 Sepsis, unspecified organism (principal); J18.9 Pneumonia, unspecified organism; I50.33 Acute on chronic diastolic (congestive) heart failure; Z68.41 Body mass index [BMI] 40.0-44.9, adult; D61.818 Other pancytopenia; R18.8 Other ascites; I24.8 Other forms of acute ischemic heart disease; F03.90 Unspecified dementia, unspecified severity, without behavioral disturbance, psychotic disturbance, mood disturbance, and anxiety; G20 Parkinson's disease; K74.60 Unspecified cirrhosis of liver; E11.9 Type 2 diabetes mellitus without complications; E89.2 Postprocedural hypoparathyroidism; I11.0 Hypertensive heart disease with heart failure; K57.90 Diverticulosis of intestine, part unspecified, without perforation or abscess without bleeding; K21.9 Gastro-esophageal reflux disease without esophagitis; E03.9 Hypothyroidism, unspecified; G47.30 Sleep apnea, unspecified; M19.90 Unspecified osteoarthritis, unspecified site; M06.9 Rheumatoid arthritis, unspecified; M79.7 Fibromyalgia; J45.909 Unspecified asthma, uncomplicated; E78.5 Hyperlipidemia, unspecified; F02.80 Dementia in other diseases classified elsewhere, unspecified severity, without behavioral disturbance, psychotic disturbance, mood disturbance, and anxiety; F41.9 Anxiety disorder, unspecified; E66.9 Obesity, unspecified; Z66 Do not resuscitate; F32.9 Major depressive disorder, single episode, unspecified; I08.1 Rheumatic disorders of both mitral and tricuspid valves; I27.20 Pulmonary hypertension, unspecified; M54.9 Dorsalgia, unspecified; K59.00 Constipation, unspecified; Z90.710 Acquired absence of both cervix and uterus; Z90.49 Acquired absence of other specified parts of digestive tract; Z87.442 Personal history of urinary calculi; Z88.1 Allergy status to other antibiotic agents; Z88.5 Allergy status to narcotic agent; Z88.0 Allergy status to penicillin; Z82.49 Family history of ischemic heart disease and other diseases of the circulatory system; Z80.52 Family history of malignant neoplasm of bladder; Z80.0 Family history of malignant neoplasm of digestive organs; Z91.81 History of falling
CPT/HCPCS: 36415; 36600; 71045; 71275; 74019; 76705; 80048; 80053; 81003; 82042; 82140; 82270; 82607; 82728; 82746; 82803; 83036; 83540; 83550; 83605; 83690; 83880; 84157; 84443; 84484; 85025; 85610; 85730; 87040; 87070; 87205; 87641; 87899; 89051; 93005; 93306; 94640; 99284; A9270-GY; J0456; J0696; J1644; J1940; J2060; J2270; P9047; Q9967